=== PATIENT | female | born 1980 | race Caucasian/White ===

== ENCOUNTER 2017-12-26 06:00 | Inpatient (IN) | payer BC ==
[2017-12-26 06:23] LABS: Absolute Lymphocytes (CBC) 3.8 K/uL (0.7-4.9); Absolute Monocytes 0.4 K/uL (0.1-1.3); Absolute Neutrophil 5.2 K/uL (1.8-8.0); Basophils % 0.5 % (0-1.3); Eosinophils % 0.4 % (0-4.4); Hematocrit 43.5 % (36.0-45.0); Lymphocytes % 40.3 % (15.3-44.8); MCH 31.1 pg (27.0-35.0); MCV 91.8 fL (80-100); MPV 8.9 fL (7.6-11.3); Monocytes % 4.5 % (3.3-12.3); Protime INR 1.14; RBC Red Blood Cell Count 4.74 M/uL (3.86-4.86)
[2017-12-26 06:46] LABS: ALT/SGPT 23 U/L (12-78); AST/SGOT 14 U/L (15-37); Albumin 3.9 g/dL (3.4-5.0); Alkaline Phosphatase 58 U/L (45-117); BUN Blood Urea Nitrogen 7 mg/dL (7-18); Bicarbonate 25 mmol/L (21-32); Bilirubin Direct < 0.1 mg/dL (0-0.2); Bilirubin Total 0.2 mg/dL (0.2-1.0); Glucose Level 145 mg/dL (74-106); Magnesium 1.7 mg/dL (1.8-2.4); NT PRO-BNP 312 pg/mL (<125); Protein, Total 7.2 g/dL (6.4-8.2); Sodium Level 139 mmol/L (136-145)
[2017-12-26] MEDS ORDERED: Magnesium Sulfate 1gm IVPB 1 GM/50 ML BAG IV ONE (07:01)
[2017-12-26] MEDS ORDERED: POTASSIUM CL SA 10 MEQ TAB PO ONE (07:01)
--- NOTE | 2017-12-26 07:27 | RAD REPORT ---
EXAM DESCRIPTION: RAD - Chest Single View - 12/26/2017 6:27 am CLINICAL HISTORY: Sharp chest pain radiating to the back COMPARISON: None. TECHNIQUE: AP portable chest image was obtained 0613 hours . FINDINGS: Lungs are clear. Heart and vasculature are normal. No measurable pleural effusion and no p neumothorax. No gross bony abnormality seen. No acute aortic findings suspected. IMPRESSION: No acute cardiopulmonary process.
--- NOTE | 2017-12-26 09:24 | ER ---
Nurse's Notes [facility] Name: Cira Nixon Age: 37 yrs Sex: Female : 1980 Arrival Date: 12/26/2017 Time: 06:01 Bed 2 Private MD: Diagnosis: Non-ST elevation (NSTEMI) myocardial infarction;Abnormal electrocardiogram [ECG] [EKG] Presentation: 12/26 06:02 Presenting complaint: EMS states: they were toned out for report of pt having severe bb sharp chest pain radiating to her back and jaw pt was on her way to work, pt states she has had these same symptoms in the past and has had a cardiac work-up including an echo and a stress test but no clear diagnosis. Transition of care: patient was not received from another setting of care. Onset of symptoms was December 26, 2017. Risk Assessment: Do you want to hurt yourself or someone else? Patient reports no desire to harm self or others. Initial Sepsis Screen: Does the patient meet any 2 criteria? No. Patient's initial sepsis screen is negative. Does the patient have a suspected source of infection? No. Patient's initial sepsis screen is negative. Care prior to arrival: Medication(s) given: ASA, 81 mg, x 4, Glucose check: 135. 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 - Social history:: Smoking status: Patient uses tobacco products, smokes one-half pack cigarettes per day, Patient/guardian denies using alcohol, street drugs. - Ebola Screening: : No symptoms or risks identified at this time. Screenin:47 Abuse screen: Denies threats or abuse. Denies injuries from another. Nutritional ao screening: No deficits noted. Tuberculosis screening: No symptoms or risk factors identified. Fall Risk None identified. Assessment: 06:05 General: Appears in no apparent distress. comfortable, Behavior is calm, cooperative, ao appropriate for age. Pain: Complains of pain in chest Pain does not radiate. Pain currently is 4 out of 10 on a pain scale. Pain began 1 day ago. Patient driving to work when sudden got chest pain. Neuro: Level of Consciousness is awake, alert, obeys commands, Oriented to person, place, time, situation, Appropriate for age Moves all extremities. Full function Speech is normal, Facial symmetry appears normal, Pupils are. Cardiovascular: Capillary refill < 3 seconds Patient's skin is warm and dry. Respiratory: Airway is patent Respiratory effort is even, unlabored, Respiratory pattern is regular, symmetrical. GI: Abdomen is non-distended. : No signs and/or symptoms were reported regarding the genitourinary system. EENT: No signs and/or symptoms were reported regarding the EENT system. Derm: Skin is intact, Skin is pink, warm \\T\\ dry. normal, Skin temperature is warm. Musculoskeletal: Circulation, motion, and sensation intact. Range of motion: intact in all extremities. 07:10 Reassessment: Reynaldo GUZMÁN at bedside updated on results and POC, pt stated understanding, sg awaiting new orders, awaiting dispo orders at this time. 08:20 Reassessment: Patient appears in no apparent distress at this time. Patient and/or sg family updated on plan of care and expected duration. Pain level reassessed. Patient is alert, oriented x 3, equal unlabored respirations, skin warm/dry/pink. pt states " do you know how much longer until I am discharged." pt re educated on wait time for blood diagnostic procedures at this time, pt stated understanding. 09:30 Reassessment: Patient appears in no apparent distress at this time. Patient and/or sg family updated on plan of care and expected duration. Pain level reassessed. Patient is alert, oriented x 3, equal unlabored respirations, skin warm/dry/pink. at bedside evaluating pt at this time Patient states feeling better. Vital Signs: 06:06 BP 146 / 100; Pulse 83; Resp 16 S; Temp 97.6(TE); Pulse Ox 96% on R/A; Weight 58.51 kg bb (R); Height 5 ft. 8 in. (172.72 cm) (R); Pain 2/10; 06:48 BP 110 / 80; Pulse 78; Resp 21; Pulse Ox 100% ; Pain 0/10; ao 07:15 BP 125 / 84; Pulse 80; Resp 20 S; Pulse Ox 100% on R/A; Pain 0/10; sg 09:08 BP 112 / 77; Pulse 79 MON; Resp 14 S; Pulse Ox 98% on R/A; Pain 0/10; sg 09:30 BP 128 / 92; Pulse 83; Resp 16 S; Pulse Ox 100% on R/A; Pain 0/10; sg 11:00 BP 133 / 91; Pulse 75; Resp 17 S; Pulse Ox 99% on R/A; Pain 0/10; sg 06:06 Body Mass Index 19.61 (58.51 kg, 172.72 cm) bb Taylor Coma Score: 11:00 Eye Response: spontaneous(4). Verbal Response: oriented(5). Motor Response: obeys sg commands(6). Total: 15. ED Course: 06:01 Patient arrived in ED. ds1 06:04 Triage completed. bb 06:06 Reynaldo Newell PA is PHCP. jr8 06:06 Alexis Hoang MD is Attending Physician. jr8 06:06 Arm band placed on Patient placed in an exam room, on a stretcher, on youth nutritional monitor, bb on pulse oximetry. EKG completed in triage. Results shown to MD. 06:10 Inserted saline lock: 20 gauge in right antecubital area, using aseptic technique. lp1 Blood collected. 06:23 X-ray completed. Portable x-ray completed in exam room. Patient tolerated procedure kp1 well. 06:25 XRAY Chest (1 view) In Process Unspecified. EDMS 06:47 Patient has correct armband on for positive identification. secured entrance monitor on. Pulse ao ox on. NIBP on. 06:48 Patient maintains SpO2 saturation greater than 95% on room air. ao 07:12 Barry Beltran, RN is Primary Nurse. sg 09:23 Lex Hilton DO is Hospitalizing Provider. jr8 10:40 Urine collected: clean catch specimen. sg 11:33 No provider procedures requiring assistance completed. Patient admitted, IV remains in sg place. intact, No redness/swelling at site. Administered Medications: 07:05 Drug: Potassium Chloride 40 mEq Route: PO; ao 11:37 Follow up: Response: No adverse reaction sg 07:05 Drug: Magnesium Sulfate 1 grams Route: IVPB; Infused Over: 1 hrs; Site: right ao antecubital; 08:03 Follow up: Response: No adverse reaction; IV Status: Completed infusion sg 09:35 Drug: Lovenox 1 mg/kg Route: Sub-Q; Site: left lower abdomen; sg 11:37 Follow up: Response: No adverse reaction sg 09:35 Drug: Metoprolol 25 mg Route: PO; sg 11:36 Follow up: Response: No adverse reaction; No change in condition sg 10:14 Drug: Effient 60 mg Route: PO; sg 11:37 Follow up: Response: No adverse reaction sg Outcome: 09:24 Decision to Hospitalize by Provider. beni 11:34 Admitted to ICU accompanied by nurse, family with patient, via stretcher, room 6, with sg chart, Report called to bedside report to be given to Keisha HERNANDEZ 11:34 Condition: stable 11:34 Instructed on the need for admit, safety practices, Demonstrated understanding of instructions. 12:28 Patient left the ED. ae1 Signatures: Dispatcher [employer] EDMS Barry Beltran RN RN Navya Cortés ds1 Tamara Garcia RN RN bb Joan Squires, RN RN lp1 Reynaldo Newell PA PA jr8 Rigoberto Seo RN Umair Espinosa RN RN ae1 Chani Brooke kp1 Corrections: (The following items were deleted from the chart) 09:09 09:08 BP 122 / 77; Pulse 79bpm; MonitorResp 14bpm; Spontaneous; Pulse Ox 98% RA; Pain sg 0/10; sg
--- NOTE | 2017-12-26 09:25 | EDPHYS ---
Physician Documentation [facility] Name: Cira Nixon Age: 37 yrs Sex: Female : 1980 Arrival Date: 12/26/2017 Time: 06:01 Bed 2 Private MD: ED Physician Alexis Hoang HPI: 12/26 06:24 This 37 yrs old Female presents to ER via EMS with complaints of Chest Pain. jr8 06:24 The patient or guardian reports chest pain that is located primarily in the anterior jr8 chest wall, bilaterally. The pain radiates to both arms, both shoulders, neck, back. Associated signs and symptoms: Pertinent positives: diaphoresis, numbness and tingling. The chest pain is described as sharp. Duration: The patient or guardian reports a single episode. Modifying factors: The symptoms are alleviated by nothing. the symptoms are aggravated by nothing. Severity of pain: At its worst the pain was moderate in the emergency department the pain has resolved. The patient has experienced similar episodes in the past, a few times. The patient has not recently seen a physician. Patient stated that every once in a while will have pain that starts in the jaw and then goes down into chest, arms, and back. Stated that it is aching and very sharp. Today hand numbness in feet as well. Had full cardiac work up by construction project mgr about 2 years ago and found no acute findings. Stated that today was the worst episode that she has had . 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 - Social history:: Smoking status: Patient uses tobacco products, smokes one-half pack cigarettes per day, Patient/guardian denies using alcohol, street drugs. - Ebola Screening: : No symptoms or risks identified at this time. ROS: 06:24 Eyes: Negative for injury, pain, redness, and discharge, ENT: Negative for injury, jr8 pain, and discharge, Neck: Negative for injury, pain, and swelling, Respiratory: Negative for shortness of breath, cough, wheezing, and pleuritic chest pain, Abdomen/GI: Negative for abdominal pain, nausea, vomiting, diarrhea, and constipation, Back: Negative for injury and pain, MS/Extremity: Negative for injury and deformity, Skin: Negative for injury, rash, and discoloration. 06:24 Cardiovascular: Positive for chest pain, Negative for edema, orthopnea, palpitations, paroxysmal nocturnal dyspnea. 06:24 Neuro: Positive for numbness, tingling, Negative for altered mental status, dizziness, gait disturbance, headache, hearing loss, loss of consciousness, seizure activity, speech changes, syncope, near syncope, tinnitus, tremor, visual changes, weakness. Exam: 06:24 Eyes: Pupils equal round and reactive to light, extra-ocular motions intact. Lids and jr8 lashes normal. Conjunctiva and sclera are non-icteric and not injected. Cornea within normal limits. Periorbital areas with no swelling, redness, or edema. ENT: Nares patent. No nasal discharge, no septal abnormalities noted. Tympanic membranes are normal and external auditory canals are clear. Oropharynx with no redness, swelling, or masses, exudates, or evidence of obstruction, uvula midline. Mucous membranes moist. Neck: Trachea midline, no thyromegaly or masses palpated, and no cervical lymphadenopathy. Supple, full range of motion without nuchal rigidity, or vertebral point tenderness. No Meningismus. Respiratory: Lungs have equal breath sounds bilaterally, clear to auscultation and percussion. No rales, rhonchi or wheezes noted. No increased work of breathing, no retractions or nasal flaring. Abdomen/GI: Soft, non-tender, with normal bowel sounds. No distension or tympany. No guarding or rebound. No evidence of tenderness throughout. Back: No spinal tenderness. No costovertebral tenderness. Full range of motion. Skin: Warm, dry with normal turgor. Normal color with no rashes, no lesions, and no evidence of cellulitis. MS/ Extremity: Pulses equal, no cyanosis. Neurovascular intact. Full, normal range of motion. Neuro: Awake and alert, GCS 15, oriented to person, place, time, and situation. Cranial nerves II-XII grossly intact. Motor strength 5/5 in all extremities. Sensory grossly intact. Cerebellar exam normal. Normal gait. 06:24 Cardiovascular: Rate: normal, Rhythm: regular, Pulses: Pulses are 2+ in right radial artery and left radial artery. Heart sounds: S3, increased, Edema: is not appreciated, JVD: is not appreciated. 06:24 ECG was reviewed by the Attending Physician. Vital Signs: 06:06 BP 146 / 100; Pulse 83; Resp 16 S; Temp 97.6(TE); Pulse Ox 96% on R/A; Weight 58.51 kg bb (R); Height 5 ft. 8 in. (172.72 cm) (R); Pain 2/10; 06:48 BP 110 / 80; Pulse 78; Resp 21; Pulse Ox 100% ; Pain 0/10; ao 07:15 BP 125 / 84; Pulse 80; Resp 20 S; Pulse Ox 100% on R/A; Pain 0/10; sg 09:08 BP 112 / 77; Pulse 79 MON; Resp 14 S; Pulse Ox 98% on R/A; Pain 0/10; sg 09:30 BP 128 / 92; Pulse 83; Resp 16 S; Pulse Ox 100% on R/A; Pain 0/10; sg 11:00 BP 133 / 91; Pulse 75; Resp 17 S; Pulse Ox 99% on R/A; Pain 0/10; sg 06:06 Body Mass Index 19.61 (58.51 kg, 172.72 cm) bb Taylor Coma Score: 11:00 Eye Response: spontaneous(4). Verbal Response: oriented(5). Motor Response: obeys sg commands(6). Total: 15. MDM: 06:06 Patient medically screened. jr8 06:29 Differential diagnosis: abnormal EKG, acute myocardial infarction, anxiety, chest wall jr8 pain, congestive heart failure costochondritis, esophagitis, gastritis, gastroesophageal reflux disease (GERD), mitral valve prolapse, peptic ulcer disease, pericarditis, pleurisy, pneumonia, pneumothorax, pulmonary embolus, stable angina, thoracic aortic disection, unstable angina. ED course: Patient had aspirin prior to arrival. 07:34 Data reviewed: vital signs, nurses notes, lab test result(s), EKG, radiologic studies, jr8 plain films. Data interpreted: Pulse oximetry: on room air is 100 %. Interpretation: normal. Counseling: I had a detailed discussion with the patient and/or guardian regarding: the historical points, exam findings, and any diagnostic results supporting the discharge/admit diagnosis, lab results, radiology results, the need for outpatient follow up, a construction project mgr, to return to the emergency department if symptoms worsen or persist or if there are any questions or concerns that arise at home. ED course: Discussed with patient that she meets criteria for LVH on ECG, has BNP elevation, and noted on physical exam to have S3 heart sound in mitral region. Concern for possible ventricular hypertrophy/HF. Lung sounds clear and imaging normal. Recommend follow up with Dr. Kennedy again for further evaluation of this if second troponin comes back normal and she does not get admitted today. 09:14 Physician consultation: Antoni Kemp MD was called at 09:20, was contacted at 09:20, jr8 regarding consult, patient's condition, and will see patient in unit, scheduling heart cath for in the AM. ED course: Patient had conversion on second troponin with ECG changes on second ECG. Will admit to ICU for NSTEMI. 12/26 06:06 Order name: Basic Metabolic Panel; Complete Time: 06:49 [facility] 12/26 06:06 Order name: CBC with Diff; Complete Time: 06:49 [facility] 12/26 06:06 Order name: LFT's; Complete Time: 06:49 [facility] 12/26 06:06 Order name: Magnesium; Complete Time: 06:49 [facility] 12/26 06:06 Order name: NT PRO-BNP; Complete Time: 06:49 [facility] 12/26 06:06 Order name: PT-INR; Complete Time: 06:49 [facility] 12/26 06:06 Order name: Troponin (emerg Dept Use Only); Complete Time: 06:49 [facility] 12/26 08:22 Order name: Troponin (emerg Dept Use Only) 12/26 08:22 Order name: Troponin (Emerg Dept Use Only); Complete Time: 09:09 [facility] 12/26 11:38 Order name: Phenobarbital Level; Complete Time: 11:58 [facility] 12/26 11:53 Order name: Urine Dipstick--Ancillary (enter results) 12/26 11:53 Order name: Urine --Ancillary (enter results) 12/26 12:14 Order name: Urine --Ancillary; Complete Time: 12:26 [facility] 12/26 12:14 Order name: Urine Dipstick-Ancillary; Complete Time: 12:26 [facility] 12/26 06:06 Order name: XRAY Chest (1 view); Complete Time: 07:28 [facility] 12/26 06:06 Order name: EKG; Complete Time: 06:07 12/26 06:06 Order name: Cardiac monitoring; Complete Time: 06:10 12/26 06:06 Order name: EKG - Nurse/Tech; Complete Time: 06:09 [facility] 12/26 06:06 Order name: IV Saline Lock; Complete Time: 06:15 12/26 06:06 Order name: Labs collected and sent; Complete Time: 06:15 12/26 06:06 Order name: O2 Per Protocol; Complete Time: 06:09 [facility] 12/26 06:06 Order name: O2 Sat Monitoring; Complete Time: 06:09 12/26 06:06 Order name: Urine Dipstick-Ancillary (obtain specimen); Complete Time: 11:37 [facility] 12/26 09:09 Order name: EKG; Complete Time: 09:10 12/26 09:53 Order name: CONS Physician Consult [facility] 12/26 06:06 Order name: Urine Test (obtain specimen); Complete Time: 11:37 jr8 EC:24 Rate is 66 beats/min. Rhythm is regular, Normal Sinus Rhythm. QRS [place] is Normal. AR jr8 interval is normal at 134 msec. QRS interval is normal at 100 msec. QT interval is normal at 431 msec. No Q waves. T waves are Normal. No ST changes noted. Clinical impression: LVH and No evidence of ischemia. Interpreted by me. Reviewed by me. 09:24 Rate is 82 beats/min. Rhythm is regular, Normal Sinus Rhythm. QRS [place] is Normal. AR jr8 interval is normal at 122 msec. QRS interval is normal at 96 msec. QT interval is prolonged at 486 msec. No Q waves. T waves are Inverted in leads I, aVL, V2, V3, V4, V5, V6. No ST changes noted. Clinical impression: Cardiac ischemia and LVH. Interpreted by me. Reviewed by me. Administered Medications: 07:05 Drug: Potassium Chloride 40 mEq Route: PO; ao 11:37 Follow up: Response: No adverse reaction 07:05 Drug: Magnesium Sulfate 1 grams Route: IVPB; Infused Over: 1 hrs; Site: right ao antecubital; 08:03 Follow up: Response: No adverse reaction; IV Status: Completed infusion sg 09:35 Drug: Lovenox 1 mg/kg Route: Sub-Q; Site: left lower abdomen; sg 11:37 Follow up: Response: No adverse reaction sg 09:35 Drug: Metoprolol 25 mg Route: PO; sg 11:36 Follow up: Response: No adverse reaction; No change in condition sg 10:14 Drug: Effient 60 mg Route: PO; sg 11:37 Follow up: Response: No adverse reaction sg Disposition: 13:02 Critical Care:. jr8 Disposition: 12/26/17 09:24 Hospitalization ordered by Lex Hilton for Inpatient Admission. Preliminary diagnosis are Non-ST elevation (NSTEMI) myocardial infarction, Abnormal electrocardiogram [ECG] [EKG]. - Bed requested for Intensive Care Unit. - Status is Inpatient Admission. ae1 - Condition is Stable. - Problem is new. - Symptoms have improved. UTI on Admission? No Critical care time excluding procedures: 13:02 Critical care time: Bedside Care: 20 minutes, Consultation: 10 minutes, Family jr8 Intervention: 10 minutes. Total time: 40 minutes Addendum: 12/28/2017 19:05 Co-signature as Attending Physician, Alexis zuniga Signatures: Dispatcher [employer] Madeline Huang RN RN dw Gay, Steven, RN RN sg Lam, Pin, MD MD pkl Ballard, Brenda, RN RN bb Roszak, Josh, PA PA jr8 Rigoberto Seo RN RN ao Elliott, Andrea, RN RN ae1 Corrections: (The following items were deleted from the chart) 12/26 09:23 07:34 ED course: Discussed with patient that she meets criteria for LVH on ECG, has BNP jr8 elevation, and noted on physical exam to have S3 heart sound in mitral region. Concern for possible ventricular hypertrophy/HF. Lung sounds clear and imaging normal. Recommend follow up with Dr. Kennedy again for further evaluation of this . jr8 11:28 09:24 Hospitalization Ordered by Lex Hilton DO for Inpatient Admission. Preliminary dw diagnosis is Non-ST elevation (NSTEMI) myocardial infarction; Abnormal electrocardiogram [ECG] [EKG]. Bed requested for Intensive Care Unit. Status is Inpatient Admission. Condition is Stable. Problem is new. Symptoms have improved. UTI on Admission? No. jr8 12:28 11:28 12/26/2017 09:24 Hospitalization Ordered by Lex Hilton DO for Inpatient ae1 Admission. Preliminary diagnosis is Non-ST elevation (NSTEMI) myocardial infarction; Abnormal electrocardiogram [ECG] [EKG]. Bed requested for Intensive Care Unit. Status is Inpatient Admission. Condition is Stable. Problem is new. Symptoms have improved. UTI on Admission? No. dw
[2017-12-26] MEDS ORDERED: METOPROLOL TAR 25 MG TAB ONE (09:33)
[2017-12-26] MEDS ORDERED: ENOXAPARIN 60 MG/0.6 ML SQ ONE (09:34)
[2017-12-26] MEDS ORDERED: PRASUGREL (EFFIENT) 10 MG TAB PO ONE (09:45)
[2017-12-26] MEDS ORDERED: ONDANSETRON 4 MG/2 ML VIAL IV PRN (09:56)
[2017-12-26] MEDS ORDERED: NITROGLYCERIN 0.4 MG/TAB SL PRN (09:56)
[2017-12-26] MEDS: NA CHLORIDE 0.9% 1,000 ML IV SCH ×3 (10:00→23:20)
--- NOTE | 2017-12-26 10:10 | P.HP ---
Certification for Inpatient Patient admitted to: Inpatient With expected LOS: >2 Midnights Patient will require the following post-hospital care: None Practitioner: I am a practitioner with admitting privileges, knowledge of patient current condition, hospital course, and medical plan of care. Services: Services provided to patient in accordance with Admission requirements found in Title 42 Section 412.3 of the Code of Federal Regulations Patient History Date of Service: 12/26/17 Primary Care Provider: Dr. Camara; Pain management-Dr. Olmstead Reason for admission: Chest pain History of Present Illness: 37-year-old female presented emergency room with chest pain. The patient reports that she has been having chest pain off and on for the last several years. Today it was worse. Pain started to the jaw area then would radiate to the chest bilaterally. It would then radiate to the back. She rated the pain about a 10/10. It was associated with some sweating. No significant shortness of breath or dizziness noted. She also reported some numbness to the feet and hands with this. She came to the ER for further evaluation. In the ER she was evaluated. Initial troponin was less than 0.02. 2nd troponin was 0.24. Sec and EKG showed some evidence of ischemia to the anterior lateral region. Reports a history of having a stress test and echocardiogram done about 3 years ago with cardiology. Strict for sepsis was normal. Magnesium was slightly low. Potassium also low. Patient will be admitted for further evaluation and treatment. ER has contacted cardiology. Cardiology plans for heart catheterization tomorrow. When I saw the patient she was without any chest pain. She reports a history of chronic back pain, seizure disorder, hyperlipidemia. She once took blood pressure medication but stopped it due to low blood pressure. She does smoke on a regular basis. She reports compliance with her medication. Current medications include phenobarbital, Crestor, and Suboxone. Allergies morphine Allergy (Unverified 01/01/15 16:15) Unknown Penicillins Allergy (Unverified 01/01/15 16:15) Unknown Home medications list reviewed: Yes - Past Medical/Surgical History Diabetic: No -: Hyperlipidemia -: Chronic back pain -: Tobacco abuse -: Seizure disorder -: Hysterectomy -: Right foot surgery Psychosocial/ Personal History: Patient is . She has 2 children. 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 - Family History Father -: Heart disease Mother -: Heart disease - Social History Smoking Status: Light Tobacco smoker (1-9 cigarettes/day) Counseled patient to stop smoking for: less than 10 minutes Smoking therapy provided: Yes Patient receptive to therapy: Yes Alcohol use: No CD- Drugs: No Caffeine use: Yes Place of Residence: Home Review of Systems General: As per HPI Eyes: Unremarkable ENT: Unremarkable Respiratory: Unremarkable Cardiovascular: Chest Pain, As per HPI Gastrointestinal: Unremarkable Genitourinary: Unremarkable Musculoskeletal: Back Pain, As per HPI Integumentary: Unremarkable Neurological: Unremarkable Lymphatics: Unremarkable Physical Examination - Physical Exam General: Alert, In no apparent distress, Oriented x3, Cooperative HEENT: Atraumatic, Normocephalic, PERRLA, Mucous membr. moist/pink Neck: Supple, No Thyromegaly Respiratory: Clear to auscultation bilaterally, Normal air movement Cardiovascular: Normal pulses, Regular rate/rhythm Gastrointestinal: Normal bowel sounds, Soft and benign, Non-distended, No tenderness, No masses, No rebound, No guarding Musculoskeletal: No contractures, No erythema, No tenderness, No warmth Integumentary: No tenderness/swelling, No erythema, No warmth, No cyanosis Neurological: Normal speech, Normal strength at 5/5 x4 extr, Normal tone, Normal affect Lymphatics: No axilla or inguinal lymphadenopathy - Studies Laboratory Data (last 24 hrs) 12/26/17 06:05: PT 13.5 H, INR 1.14 12/26/17 06:05: WBC 9.6, Hgb 14.7, Hct 43.5, Plt Count 259 12/26/17 06:05: Sodium 139, Potassium 3.0 L, BUN 7, Creatinine 0.70, Glucose 145 H, Magnesium 1.7 L, Total Bilirubin 0.2, AST 14 L, ALT 23, Alkaline Phosphatase 58 Assessment and Plan - Problems (Diagnosis) (1) Chest pain Current Visit: Yes Status: Acute Plan: Troponin elevated. suspect NSTEMI. Patient will be admitted for treatment. ER spoke to Cardiology. Will have heart cath tomorrow. Will start ASA, Lovenox. Effient appears to have been given in the ER. Will hold off on BP medication due to low BP. Will start Crestor. Patient stable. Qualifiers: Chest pain type: unspecified Qualified Code(s): R07.9 - Chest pain, unspecified (2) NSTEMI (non-ST elevated myocardial infarction) Current Visit: Yes Status: Acute Plan: Continue as above. Cardiology consulted. Anticipate Heart cath tomorrow. (3) Hyperlipidemia Current Visit: Yes Status: Chronic Plan: Will check Lipids. Will start Crestor. Qualifiers: Hyperlipidemia type: unspecified Qualified Code(s): E78.5 - Hyperlipidemia , unspecified (4) Seizure disorder Current Visit: Yes Status: Chronic Plan: Patient taking medication. Will continue with Phenobarbitol. (5) Hypomagnesemia Current Visit: Yes Status: Acute Plan: Will monitor and replace. Replacement protocol in place. (6) Hypokalemia Current Visit: Yes Status: Acute Plan: Will monitor and replace appropriately. Replacement protocol in place. (7) Chronic pain Current Visit: Yes Status: Chronic Plan: Patient takes Suboxone and sees pain management. Will continue with her medication. Qualifiers: Chronic pain type: chronic pain syndrome Qualified Code(s): G89.4 - Chronic pain syndrome Discharge Plan: Home Plan to discharge in: Greater than 2 days - Advance Directives Does patient have a Living Will: No Does patient have a Durable POA for Healthcare: No - Code Status/Comfort Care Code Status Assessed: Yes Time Spent Managing Pts Care (In Minutes): 55
--- NOTE | 2017-12-26 10:28 | EKG ---
Test Date: 2017-12-26 Test Time: 09:10:[address] Reporter: SNOW MEASUREMENT RESULTS: Intervals: Rate: 82 NC: 122 QRSD: 96 QT: 416 QTc: 486 [place]: P: 69 NC: 122 QRS: 52 T: 139 INTERPRETIVE STATEMENTS: Normal sinus rhythm Minimal voltage criteria for LVH, may be normal variant T wave abnormality, consider anterolateral ischemia Prolonged QT Abnormal ECG Compared to ECG 12/26/2017 06:01:22 Possible ischemia now present Prolonged QT interval now present T-wave abnormality still present Electronically Signed On 12-26-17 10:27:51 CDT by Antoni Kemp
--- NOTE | 2017-12-26 10:29 | EKG ---
Test Date: 2017-12-26 Test Time: 06:01:22 Housecleaner Floor: DEE MEASUREMENT RESULTS: Intervals: Rate: 66 OH: 134 QRSD: 100 QT: 412 QTc: 431 [place]: P: 69 [place]: 134 QRS: 58 T: 76 INTERPRETIVE STATEMENTS: Normal sinus rhythm Minimal voltage criteria for LVH, may be normal variant Nonspecific T wave abnormality Abnormal ECG No previous ECG available for comparison Electronically Signed On 12-26-17 10:28:02 CDT by Antoni Kemp
[2017-12-26 12:14] LABS: Urine Blood NEGATIVE (NEG); Urine Glucose NEGATIVE (NEG); Urine Protein NEGATIVE (NEG)
--- NOTE | 2017-12-26 16:18 | CON ---
History Of Present Illness: Ms. Nixon is 37. She has been having chest pain like these spells for se veral years, will happen intermittently. She had one 2 months ago and one today. The one today hurt the most and scared her the most. This is the first time she has come to the hospital with it. The spell started as tightness and pressure in the jaw, radiates to the chest. She is out of breath, ti ght, very uncomfortable. When she arrived in the emergency room, her EKG looked fine at first and fe w hours later, the EKG showed inverted T-waves. Her chest pain had gone away, and her troponins adriana me abnormal. The patient has never had a cardiac cath or any cardiac evaluation. She has a lifelong seizure disorder and takes phenobarbital. She takes Suboxone because of chronic pain, and she takes Crestor 10 mg for elevated lipids. Social History: She is a regular tobacco user and agrees that she needs to quit smoking. Allergies: SHE IS ALLERGIC TO MORPHINE AND PENICILLINS. NOT ALLERGIC TO X-RAY CONTRAST MATERIAL. Physical Examination: Vital Signs: 5 feet 8 inches, 128 pounds. General: Alert, oriented, pleasant, not in distress. Lungs: Clear. Cardiac: Normal. Abdomen: Soft. Extremities: Normal. No cyanosis, clubbing or edema. Distal pulses normal. Diagnostic Data: Most recent EKG shows anterolateral T-wave inversion, no Q-waves, there was no ST e levation. Her creatinine is 0.7. Her highest troponin is 0.24. Impression: The patient has had an acute coronary syndrome. The patient needs to stop using tobacco , get very aggressive with lipid-lowering and she needs to undergo a cardiac cath tomorrow, possibly a stent. The patient seems to understand the cardiac cath procedure and stent procedure. She agrees to do it. She understands the risks, potential benefits, indications, and agrees to proceed. GERARD/YO Voice ID: [id number] Report ID: [id number]
[2017-12-26 17:18] LABS: CKMB Creatine Kinase MB 2.5 ng/mL (0.3-3.6)
[2017-12-26] MEDS: ACETAMINOPHEN 500 MG TAB PO PRN (19:04)
[2017-12-26] MEDS: ENOXAPARIN 60 MG/0.6 ML SQ SCH (20:29)
[2017-12-26] MEDS: FAMOTIDINE 20 MG TAB PO SCH (20:29)
[2017-12-26] MEDS: NICOTINE 21 MG/PAT TD SCH (20:29)
[2017-12-26] MEDS ORDERED: PHENOBARBITAL 32.4 MG TABLET PO SCH ×2 (21:00)
[2017-12-26] MEDS ORDERED: ROSUVASTATIN 10 MG TAB PO SCH (21:00)
[2017-12-27] MEDS: NA CHLORIDE 0.9% 1,000 ML IV SCH ×2 (03:36→12:40)
[2017-12-27] MEDS: ACETAMINOPHEN 500 MG TAB PO PRN ×3 (03:36→11:58)
[2017-12-27 05:44] LABS: Absolute Lymphocytes (CBC) 2.7 K/uL (0.7-4.9); Absolute Monocytes 0.4 K/uL (0.1-1.3); Absolute Neutrophil 2.7 K/uL (1.8-8.0); Basophils % 0.6 % (0-1.3); Eosinophils % 0.8 % (0-4.4); Hematocrit 38.7 % (36.0-45.0); Lymphocytes % 46.3 % (15.3-44.8); MCH 31.7 pg (27.0-35.0); MCV 92.8 fL (80-100); MPV 8.9 fL (7.6-11.3); RBC Red Blood Cell Count 4.17 M/uL (3.86-4.86)
[2017-12-27 06:03] LABS: BUN Blood Urea Nitrogen 7 mg/dL (7-18); Bicarbonate 28 mmol/L (21-32); Glucose Level 87 mg/dL (74-106); HDL Cholesterol 48 mg/dL (40-60); LDL Cholesterol, Calculated 79 (<130); Potassium 4.1 mmol/L (3.5-5.1); Sodium Level 143 mmol/L (136-145)
[2017-12-27] MEDS: ENOXAPARIN 60 MG/0.6 ML SQ SCH (07:31)
[2017-12-27] MEDS: NICOTINE 21 MG/PAT TD SCH (07:51)
[2017-12-27] MEDS: FAMOTIDINE 20 MG TAB PO SCH (07:52)
[2017-12-27] MEDS ORDERED: ASPIRIN EC 81 MG TAB PO SCH (09:00)
[2017-12-27] MEDS ORDERED: PRASUGREL (EFFIENT) 10 MG TAB PO SCH (09:00)
--- NOTE | 2017-12-27 12:48 | P.PN ---
Subjective Date of Service: 12/27/17 Primary Care Provider: Dr. Camara; Pain management-Dr. Olmstead Chief Complaint: Chest pain Subjective: Doing well Physical Examination - Vital Signs Temperature: 97.5 F Blood Pressure: 137/84 Pulse: 83 Respirations: 18 Pulse Ox (%): 100 - Physical Exam General: Alert, In no apparent distress, Oriented x3, Cooperative HEENT: Atraumatic Neck: Supple Respiratory: Clear to auscultation bilaterally, Normal air movement Cardiovascular: Normal pulses, Regular rate/rhythm Gastrointestinal: Normal bowel sounds, Soft and benign, Non-distended, No tenderness, No masses, No rebound, No guarding Musculoskeletal: No erythema, No tenderness, No warmth Integumentary: No tenderness/swelling, No erythema, No warmth, No cyanosis Neurological: Normal speech, Normal strength at 5/5 x4 extr, Normal tone, Normal affect - Studies Medications List Reviewed: Yes Assessment & Plan - Problems (Diagnosis) (1) Chest pain Onset Date: 12/27/17 Current Visit: Yes Status: Acute Plan: Troponin elevated. Suspect NSTEMI. Continue current medications. Cardiology plans for heart catheterization today. Await findings. Qualifiers: Chest pain type: unspecified Qualified Code(s): R07.9 - Chest pain, unspecified (2) NSTEMI (non-ST elevated myocardial infarction) Onset Date: 12/27/17 Current Visit: Yes Status: Acute Plan: Continue as above. Cardiology consulted. Heart catheterization scheduled for today. (3) Hyperlipidemia Onset Date: 12/27/17 Current Visit: Yes Status: Chronic Plan: Continue with medication Qualifiers: Hyperlipidemia type: unspecified Qualified Code(s): E78.5 - Hyperlipidemia , unspecified (4) Seizure disorder Onset Date: 12/27/17 Current Visit: Yes Status: Chronic Plan: Patient taking medication. Will continue with Phenobarbitol. (5) Hypomagnesemia Onset Date: 12/27/17 Current Visit: Yes Status: Acute Plan: Will monitor and replace. Replacement protocol in place. (6) Hypokalemia Onset Date: 12/27/17 Current Visit: Yes Status: Acute Plan: Will monitor and replace appropriately. Replacement protocol in place. (7) Chronic pain Onset Date: 12/27/17 Current Visit: Yes Status: Chronic Plan: Patient takes Suboxone and sees pain management. Will continue with her medication. Qualifiers: Chronic pain type: chronic pain syndrome Qualified Code(s): G89.4 - Chronic pain syndrome (8) Hypertension Current Visit: Yes Status: Chronic Plan: Blood pressure stable without medication. Will continue to monitor closely. May need to start low-dose beta-dulce. Qualifiers: Hypertension type: essential hypertension Qualified Code(s): I10 - Essential (primary) hypertension Discharge Plan: Home Plan to discharge in: 24 Hours Time Spent Managing Pts Care (In Minutes): 55
[2017-12-27] MEDS ORDERED: HEPA 1000U/500MLS 1,000 UNIT/500 ML BAG IV ONE (13:53)
[2017-12-27] MEDS ORDERED: NA CHLORIDE 0.9% 0 ML ONE (13:54)
[2017-12-27] MEDS ORDERED: ATROPINE SULF 1 MG/10 ML SYR IV ONE (13:54)
[2017-12-27] MEDS ORDERED: MIDAZOLAM HCL 2 MG/2 ML INJ ONE ×2 (13:59→14:18)
[2017-12-27] MEDS ORDERED: FENTANYL CITR 100 MCG/2 ML ONE (13:59)
[2017-12-27] MEDS ORDERED: LIDOCAINE 2% MPF 5 ML VIAL ONE ×2 (14:22)
[2017-12-27] MEDS ORDERED: LIDOCAINE 1% MPF 5 ML VIAL ONE (15:41)
--- NOTE | 2017-12-27 15:42 | P.DS ---
Admission Date: 12/26/17 Discharge Date: 12/27/17 Primary Care Provider: Dr. Camara; Pain management-Dr. Olmstead Disposition: ROUTINE DISCHARGE Discharge Condition: GOOD Reason for Admission: Chest pain Consultations: Cardiology-Dr. Castillo Procedures: Heart catheterization shows small-vessel disease. Stenosis noted to the distal LAD. No need for stenting at this time. - Problems (1) Chest pain Onset Date: 12/27/17 Current Visit: Yes Status: Acute Qualifiers: Chest pain type: unspecified Qualified Code(s): R07.9 - Chest pain, unspecified (2) NSTEMI (non-ST elevated myocardial infarction) Onset Date: 12/27/17 Current Visit: Yes Status: Acute (3) Hyperlipidemia Onset Date: 12/27/17 Current Visit: Yes Status: Chronic Qualifiers: Hyperlipidemia type: unspecified Qualified Code(s): E78.5 - Hyperlipidemia , unspecified (4) Seizure disorder Onset Date: 12/27/17 Current Visit: Yes Status: Chronic (5) Hypomagnesemia Onset Date: 12/27/17 Current Visit: Yes Status: Acute (6) Hypokalemia Onset Date: 12/27/17 Current Visit: Yes Status: Acute (7) Chronic pain Onset Date: 12/27/17 Current Visit: Yes Status: Chronic Qualifiers: Chronic pain type: chronic pain syndrome Qualified Code(s): G89.4 - Chronic pain syndrome (8) Hypertension Current Visit: Yes Status: Chronic Qualifiers: Hypertension type: essential hypertension Qualified Code(s): I10 - Essential (primary) hypertension (9) Small vessel disease Current Visit: Yes Status: Chronic (10) CAD (coronary artery disease) Current Visit: Yes Status: Chronic (11) Tobacco abuse Current Visit: Yes Status: Chronic (12) COPD (chronic obstructive pulmonary disease) Current Visit: Yes Status: Chronic Qualifiers: COPD type: chronic bronchitis Chronic bronchitis type: unspecified Qualified Code(s): J42 - Unspecified chronic bronchitis Brief History of Present Illness: 37-year-old female presented emergency room with chest pain. The patient reports that she has been having chest pain off and on for the last several years. Today it was worse. Pain started to the jaw area then would radiate to the chest bilaterally. It would then radiate to the back. She rated the pain about a 10/10. It was associated with some sweating. No significant shortness of breath or dizziness noted. She also reported some numbness to the feet and hands with this. She came to the ER for further evaluation. In the ER she was evaluated. Initial troponin was less than 0.02. 2nd troponin was 0.24. Sec and EKG showed some evidence of ischemia to the anterior lateral region. Reports a history of having a stress test and echocardiogram done about 3 years ago with cardiology. Strict for sepsis was normal. Magnesium was slightly low. Potassium also low. Patient will be admitted for further evaluation and treatment. ER has contacted cardiology. Cardiology plans for heart catheterization tomorrow. When I saw the patient she was without any chest pain. She reports a history of chronic back pain, seizure disorder, hyperlipidemia. She once took blood pressure medication but stopped it due to low blood pressure. She does smoke on a regular basis. She reports compliance with her medication. Current medications include phenobarbital, Crestor, and Suboxone. Hospital Course: During the course of her stay patient presented with chest pain. Non ST wave RI was identified. Patient evaluated by Cardiology. Cardiology recommended heart catheterization. Heart catheterization shows small vessel disease with distal LAD stenosis. No stents placed at this time. Patient will continue with medical therapy. At discharge she will continue with aspirin 81 mg daily, Norvasc 10 mg 1 pill once daily, metoprolol XL 25 mg 1 pill daily, Crestor 40 mg 1 pill once daily, and nitroglycerin to be use as needed for chest pain. Recommendation is for the patient follow up with cardiology in 1 week. Patient has hypertension. At discharge new medications include Norvasc 10 mg 1 pill once daily and metoprolol XL 25 mg daily. Recommendation is to maintain blood pressures less 150/80. Further adjustment can be done by her PCP or cardiology. Patient has hyperlipidemia. At discharge new medication include Crestor 40 mg 1 pill once daily. Patient has history of seizure disorder. She will continue with her medication including phenobarbital 64.8 mg 2 pills at bedtime. Patient has chronic pain. She will continue with Suboxone 3 times a day. Recommendation is for the patient follow up with pain management to continue her medication. Patient has tobacco abuse. Tobacco cessation addressed in detail. The patient will be provided a nicotine patch to continue at home. Further adjustment can be done by her PCP. Patient likely has underlying COPD. New medications include Symbicort 160 mcg 2 puffs twice daily and Pro air 2 puffs 3 times a day as needed for shortness of breath. Combivent has been discontinued. Recommendation is for the patient follow up with pulmonology as an outpatient to further monitor and address. Vital Signs/Physical Exam: Temp Pulse Resp BP Pulse Ox 97.5 F 77 15 137/85 100 12/27/17 12:48 12/27/17 15:15 12/27/17 15:15 12/27/17 15:15 12/27/17 12:48 General: Alert, In no apparent distress, Oriented x3 HEENT: Atraumatic Neck: Supple Respiratory: Clear to auscultation bilaterally, Normal air movement Cardiovascular: Normal pulses, Regular rate/rhythm Gastrointestinal: Normal bowel sounds, Soft and benign, Non-distended, No tenderness, No masses, No rebound, No guarding Musculoskeletal: No erythema, No tenderness, No warmth Integumentary: No tenderness/swelling, No erythema, No warmth, No cyanosis Neurological: Normal speech, Normal strength at 5/5 x4 extr, Normal tone, Normal affect Laboratory Data at Discharge: WBC 5.9 K/uL (4.3-10.9) D 12/27/17 05:06 Hgb 13.2 g/dL (12.0-15.0) 12/27/17 05:06 Hct 38.7 % (36.0-45.0) 12/27/17 05:06 Plt Count 203 K/uL (152-406) D 12/27/17 05:06 PT 13.5 SECONDS (9.5-12.5) H 12/26/17 06:05 INR 1.14 12/26/17 06:05 Sodium 143 mmol/L (136-145) 12/27/17 05:06 Potassium 4.1 mmol/L (3.5-5.1) 12/27/17 05:06 BUN 7 mg/dL (7-18) 12/27/17 05:06 Creatinine 0.50 mg/dL (0.55-1.3) L 12/27/17 05:06 Glucose 87 mg/dL (74-106) 12/27/17 05:06 Magnesium 2.0 mg/dL (1.8-2.4) 12/27/17 05:06 Total Bilirubin 0.2 mg/dL (0.2-1.0) 12/26/17 06:05 AST 14 U/L (15-37) L 12/26/17 06:05 ALT 23 U/L (12-78) 12/26/17 06:05 Alkaline Phosphatase 58 U/L (45-117) 12/26/17 06:05 Troponin I 0.42 ng/mL (0.0-0.045) H 12/26/17 16:50 Triglycerides 134 mg/dL (<150) 12/27/17 05:06 Cholesterol 154 mg/dL (<200) 12/27/17 05:06 HDL Cholesterol 48 mg/dL (40-60) 12/27/17 05:06 Cholesterol/HDL Ratio 3.21 12/27/17 05:06 Home Medications: Buprenorphine HCl/Naloxone HCl [Suboxone 8 mg-2 mg Sl Film] 8 mg SL TID PRN Fluticasone [Flonase 50MCG Nasal [place]*] 1 sprays NS DAILYPRN PRN 12/26/17 Methocarbamol [Robaxin*] 500 mg PO TID PRN 12/26/17 PHENobarbital [Phenobarbital*] 2 tab PO BEDTIME 12/26/17 Albuterol Sulfate [Proair Hfa] 8.5 gm IH TID PRN #1 hfa.aer.ad 12/27/17 Amlodipine Besylate [Norvasc] 10 mg PO DAILY #30 tablet 12/27/17 Aspirin [Aspirin EC 81 MG] 81 mg PO DAILY #90 tablet.dr 12/27/17 Budesonide/Formoterol Fumarate [Symbicort 160-4.5 Mcg Inhaler] 2 puff IH BID #1 hfa.aer.ad 12/27/17 Metoprolol Succinate [Toprol Xl] 25 mg PO DAILY #30 tab 12/27/17 Nicotine [Nicoderm] 1 patch TD DAILY #30 patch.td24 12/27/17 Nitroglycerin 0.4 mg SL SEECOM PRN #30 tab.subl 12/27/17 Rosuvastatin Calcium [Crestor] 40 mg PO BEDTIME #30 tablet 12/27/17 New Medications: Albuterol Sulfate [Proair Hfa] 8.5 gm IH TID PRN #1 hfa.aer.ad PRN Reason: Shortness Of Breath Amlodipine Besylate [Norvasc] 10 mg PO DAILY #30 tablet Aspirin [Aspirin EC 81 MG] 81 mg PO DAILY #90 tablet. Budesonide/Formoterol Fumarate [Symbicort 160-4.5 Mcg Inhaler] 2 puff IH BID #1 hfa.aer.ad Metoprolol Succinate [Toprol Xl] 25 mg PO DAILY #30 tab Nicotine [Nicoderm] 1 patch TD DAILY #30 patch.td24 Nitroglycerin 0.4 mg SL SEECOM PRN #30 tab.subl PRN Reason: Chest Pain Rosuvastatin Calcium [Crestor] 40 mg PO BEDTIME #30 tablet Patient Discharge Instructions: 1. Patient will need to follow with her PCP in 1 week to follow up this hospitalization. 2. Patient presented with chest pain. Patient found to have non ST wave myocardial infarction. Patient evaluated by Cardiology. Heart catheterization done. Heart catheterization shows small vessel disease with distal LAD stenosis. No stents placed at this time. Patient continue with medical therapy. At discharge she will continue with aspirin 81 mg daily, Norvasc 10 mg 1 pill once daily, metoprolol XL 25 mg 1 pill daily, Crestor 40 mg 1 pill once daily, and nitroglycerin to be use as needed for chest pain. Recommendation is for the patient follow up with cardiology in 1 week. 3. Patient has hypertension. At discharge new medications include Norvasc 10 mg 1 pill once daily and metoprolol XL 25 mg daily. Recommendation is to maintain blood pressures less 150/80. Further adjustment can be done by her PCP or cardiology. 4. Patient has hyperlipidemia. At discharge new medication include Crestor 40 mg 1 pill once daily. 5. Patient has history of seizure disorder. She will continue with her medication including phenobarbital 64.8 mg 2 pills at bedtime. 6. Patient has chronic pain. She will continue with Suboxone 3 times a day. Recommendation is for the patient follow up with pain management to continue her medication. 7. Patient has tobacco abuse. Tobacco cessation addressed in detail. Patient will be provided nicotine patch. This can be further adjusted by her PCP. 8. Patient likely has underlying COPD. New medications include Symbicort 160 mcg 2 puffs twice daily and Pro air 2 puffs 3 times a day as needed for shortness of breath. Combivent has been discontinued. Recommendation is for the patient follow up with pulmonology as an outpatient to further monitor and address. Diet: AHA Activity: Ad bessy Time spent managing pt's care (in minutes): 55
--- NOTE | 2017-12-27 16:21 | ECHO ---
HEIGHT: 5 ft 8 in WEIGHT: 133 lb 0 oz DATE OF STUDY: 12/27/[address]: Kemal Catsillo MD 2-DIMENSIONAL: YES M.MODE: YES DOPPLER: YES COLOR FLOW: YES TDS: PORTABLE: DEFINITY: BUBBLE STUDY: DIAGNOSIS: STATUS POST CATHETER CARDIAC HISTORY: CATHERIZATION: YES SURGERY: PROSTHETIC VALVE: PACEMAKER: MEASUREMENTS (cm) DIASTOLIC (NORMALS) SYSTOLIC (NORMALS) IVSd 1.0 (0.6-1.2) LA Diam 3.0 (1.9-4.0) LVEF 59% LVIDd 5.2 (3.5-5.7) LVIDs 3.5 (2.0-3.5) %FS 32% LVPWd 1.0 (0.6-1.2) Ao Diam 2.8 (2.0-3.7) 2 DIMENSIONAL ASSESSMENT: RIGHT ATRIUM: NORMAL LEFT ATRIUM: NORMAL RIGHT VENTRICLE: NORMAL LEFT VENTRICLE: NORMAL TRICUSPID VALVE: NORMAL MITRAL VALVE: NORMAL PULMONIC VALVE: NORMAL AORTIC VALVE: NORMAL PERICARDIAL EFFUSION: NONE AORTIC ROOT: NORMAL LEFT VENTRICULAR WALL MOTION: NORMAL DOPPLER/COLOR FLOW: TRACE MITRAL REGURGITATION COMMENTS: NORMAL TWO DIMENSIONAL ECHOCARDIOGRAM. TRACE MITRAL REGURGITATION. TECHNOLOGIST: BYRON FARAH
--- NOTE | 2017-12-27 23:16 | OP ---
Surgeon: Kemal Castillo MD Shingle Packer: Chrissy Hernandez. Procedure: Left heart catheterization with selective coronary arteriogram. Indication: [id number] myocardial infarction. Ms. Nixon is 37, has had chest pain intermittent ly for a few years, has history of tobacco use and hypertension as risk factors, came in, and got adm itted to Dr. Hilton' service with non-ST elevation AR. Description Of Procedure: She came into the [facility] today, got 4 mg of Versed for IV sedation and s ome fentanyl. A 6-Micronesian sheath was introduced in the right common femoral artery successfully. Ang io-Seal was used to close the case. Six-Micronesian catheters were used to do the diagnostic catheterizat ion. She had noticeably very small blood vessel throughout her coronaries. Her circumflex was fairl y normal and her RCA was normal with about 30% proximal stenosis. Her LAD proximally was normal from the mid LAD all the way down to the tip. She had very small vessel, maybe 1 mm. She had an area of about 60-70% stenosis and a vessel that is probably about 1 mm at most. Total conscious sedation wa s 30 minutes. Complications: None. Blood Loss: 5 cc. Final Assessment: Tellcbrv-ln-tkyexm coronary artery disease. Plan: For medical therapy. I think she needs to be on a statin, baby aspirin, probably a calcium ch carolyn dulce, maybe even Imdur or Ranexa down the road if she continues to have symptoms. She was s trongly urged to quit smoking. I will discuss the case further with Dr. Hilton and Dr. Camara. She can go home today and we will see her in the office in about 2-4 weeks. ALONZO/YO Voice ID: [id number] Report ID: [id number]
== END 2017-12-27 16:50 | disposition home or self-care (01) | DRG 282 ==
LOC: ER 06:00 → ERHOLD 09:51 → 3RD-ICU 11:36
PROVIDERS: ADMIT Family Medicine; ATTEND Family Medicine
PROC: 4A023N7 Measurement of Cardiac Sampling and Pressure, Left Heart, Percutaneous Approach (ICD-10-PCS; principal; 2017-12-27)
PROC: B2111ZZ Fluoroscopy of Multiple Coronary Arteries using Low Osmolar Contrast (ICD-10-PCS; 2017-12-27)
DX: I21.4 Non-ST elevation (NSTEMI) myocardial infarction (principal); E78.5 Hyperlipidemia, unspecified; G40.909 Epilepsy, unspecified, not intractable, without status epilepticus; E83.42 Hypomagnesemia; E87.6 Hypokalemia; G89.29 Other chronic pain; I10 Essential (primary) hypertension; F17.210 Nicotine dependence, cigarettes, uncomplicated; J44.9 Chronic obstructive pulmonary disease, unspecified; Z79.82 Long term (current) use of aspirin; I25.10 Atherosclerotic heart disease of native coronary artery without angina pectoris; Z88.5 Allergy status to narcotic agent; Z88.0 Allergy status to penicillin
CPT/HCPCS: 36415; 71045; 80048; 80061; 80076; 80184; 81003; 81025; 82550; 82553; 83735; 83880; 84439; 84443; 84484; 85025; 85610; 93005; 93306; 93454; 96365; 96372; 99285; C1760; C1893; J0583; J1650; J2250; J3010; J3475; J7030

== ENCOUNTER 2019-12-20 21:00 | Emergency (ER) | payer BC, SELFPAY ==
--- OUTSIDE RECORDS SUMMARY | 2019-12-20 21:05 | XMS REPORT | Clinical Summary ---
:1980 Author Organization [facility] Address [address] [place] [address] Care Team Providers Name Role Phone Brandon Camara MD Primary Care Provider [phone] Allergies Active Allergy Reactions Severity Noted Date Comments Atorvastatin 01/23/2018 Morphine High Other reaction( s): Respiratory Distress Penicillins Hives Medium Medications Medication Sig Dispensed Refills Start Date End Date Status PHENobarbital TK 2 TS PO 5 12/11/2017 Acti ve (LUMINAL) 64.8 MG QHS tablet albuterol (PROAIR ProAir HFA 90 0 Active HFA) 90 mcg/actuation mcg/actuation aerosol inhaler inhaler aspirin (ECOTRIN) Take 81 mg by 0 Active 81 MG enteric mouth daily. coated tablet SUBOXONE 8-2 mg DISSOLVE 1 0 02/05/2018 Ac tive film FILM ON THE TONGUE TID fluticasone SPR ONCE IEN 3 02/05/2018 Acti ve (FLONASE) 50 D mcg/actuation nasal spray lisinopril Take 1 tablet 30 tablet 3 01/21/2019 Acti ve (PRINIVIL,ZESTRIL) (10 mg total) 0 10 mg tablet by mouth daily. metoprolol Take 1 tablet 30 tablet 3 01/21/2019 Acti ve succinate XL (25 mg total) (TOPROL-XL) 25 mg by mouth 24 hr tablet daily. isosorbide Take 1 tablet 30 tablet 3 01/21/2019 Acti ve mononitrate (120 mg (IMDUR) 120 MG 24 total) by hr tablet mouth daily. isosorbide TAKE 1 60 tablet 1 02/10/2019 Active mononitrate TABLET(120 (IMDUR) 120 MG 24 MG) BY MOUTH hr tablet DAILY clopidogreL TAKE 1 90 tablet 1 08/15/2019 Active (PLAVIX) 75 mg TABLET(75 MG) tablet BY MOUTH DAILY ranolazine TAKE 1 TABLET 180 tablet 1 10/13/2019 Act paulino (RANEXA) 1,000 mg BY MOUTH 12 hr tablet TWICE DAILY rosuvastatin TAKE 1 90 tablet 3 10/20/2019 Active (CRESTOR) 40 MG TABLET(40 MG) tablet BY MOUTH EVERY NIGHT clopidogrel Take 1 tablet 30 tablet 1 07/19/2018 Dis continued (PLAVIX) 75 mg (75 mg total) 0 tablet by mouth daily. metoprolol Take 1 tablet 90 tablet 1 07/19/2018 Disc ontinued succinate XL (25 mg total) 9 (TOPROL-XL) 25 mg by mouth 24 hr tablet daily. rosuvastatin Take 1 tablet 90 tablet 1 07/19/2018 Di scontinued (CRESTOR) 40 MG (40 mg total) 9 tablet by mouth daily. lisinopril Take 1 tablet 90 tablet 3 07/22/2018 Disc ontinued (PRINIVIL,ZESTRIL) (10 mg total) 9 (Reorder) 10 mg tablet by mouth daily. nitroglycerin 1 under the 100 tablet 1 08/08/2018 Ex pired (NITROSTAT) 0.4 MG tongue as 0 SL tablet needed for angina, may repeat q5mins for up three doses rosuvastatin TAKE 1 90 tablet 0 09/19/2018 Discon tinued (CRESTOR) 40 MG TABLET(40 MG) 9 (Reorder) tablet BY MOUTH EVERY NIGHT metoprolol TAKE 1 90 tablet 0 09/19/2018 Disconti nued succinate XL TABLET(25 MG) 9 (Re order) (TOPROL-XL) 25 mg BY MOUTH 24 hr tablet DAILY clopidogrel TAKE 1 90 tablet 0 09/19/2018 Discont inued (PLAVIX) 75 mg TABLET(75 MG) 9 tablet BY MOUTH DAILY ranolazine Take 1 tablet 60 tablet 3 09/19/2018 Disc ontinued (RANEXA) 1,000 mg (1,000 mg 9 (R eorder) 12 hr tablet total) by mouth 2 (two) times a day. isosorbide Take 1 tablet 30 tablet 3 09/19/2018 Disc ontinued mononitrate (120 mg 9 (Reorder ) (IMDUR) 120 MG 24 total) by hr tablet mouth daily. lisinopril Take 1 tablet 90 tablet 3 01/21/2019 Disc ontinued (PRINIVIL,ZESTRIL) (10 mg total) 9 (Reorder) 10 mg tablet by mouth daily. isosorbide Take 1 tablet 30 tablet 3 01/21/2019 Disc ontinued mononitrate (120 mg 9 (Reorder ) (IMDUR) 120 MG 24 total) by hr tablet mouth daily. rosuvastatin Take 1 tablet 30 tablet 3 01/21/2019 Di scontinued (CRESTOR) 40 MG (40 mg total) 0 tablet by mouth daily. ranolazine TAKE 1 60 tablet 1 02/10/2019 Disconti nued (RANEXA) 1,000 mg TABLET(1000 9 (Reorder) 12 hr tablet MG) BY MOUTH TWICE DAILY ranolazine TAKE ONE 180 tablet 1 03/19/2019 Discont inued (RANEXA) 1,000 mg TABLET BY 0 12 hr tablet MOUTH TWICE DAILY Active Problems Problem Noted Date Essential hypertension 07/22/2018 Cyst of ovary 02/26/2018 Coronary artery disease of [place] artery of [place] hea rt with stable 02/25/2018 angina pectoris Seizure 02/25/2018 NSTEMI (non-ST elevated myocardial infarction) 018 Hyperlipidemia LDL goal <70 01/22/2018 Nicotine addiction 01/22/2018 Chest pain 01/22/2018 Unstable angina pectoris 01/22/2018 Encounters Date Type Specialty Care Team Description 10/18/2019 Refill Cardiology Librado Med Refill MD Efren 10/13/2019 Refill Cardiology [facility] Med Zoraida Schwartz MD 10/02/2019 Orders Only Cardiology Carmela Best MA Coronary artery disease of [place] artery of [place] heart with stable angina pectoris (HCC) (Primary Dx); Chest pain, uns pecified type 08/14/2019 Refill Cardiology Librado Med Refill MD Efren 03/19/2019 Refill Cardiology Tylor Pavon Refill MD Efren 02/10/2019 Refill Cardiology Tylor Pavon Refill MD Efern 02/10/2019 Refill Cardiology Librado, Tylor Doddill MD Efren 01/20/2019 Refill Cardiology Librado, Med Refill MD Efren after 12/19/2018 Family History Medical History Relation Name Comments Atrial fibrillation Father azra porter Hypertension Father azra porter Diabetes Maternal Aunt geraldine porter Lymphoma Maternal Aunt Gabriela Herman Thyroid disease Maternal Aunt Gabriela Herman passed from lymp sheila COPD Maternal Grandfather Martinez Echeverria Heart failure Maternal Grandfather Martinez Echeverria Hypertension Maternal Grandfather Martinez Echeverria Cancer Maternal Grandmother Geraldine Porter stomach can cer Coronary artery disease Maternal Grandmother Geraldine Porter Valvular heart disease Mother Hypertension Paternal Grandmother Sierra Echeverria Relation Name Status Comments Father azra porter Maternal Aunt geraldine porter Maternal Aunt Gabriela Herman Maternal Grandfather Martinez Echeverria Maternal Grandmother Geraldine Porter Mother Paternal Grandmother Sierra Echeverria Social History Tobacco Use Types Packs/Day Years Used Date Former Smoker Cigarettes 0.25 25 Quit: 12/27/19 18 Smokeless Tobacco: Never Used Alcohol Use Drinks/Week oz/Week Comments No Sex Assigned at Date Recorded Female 01/13/2019 11:04 AM CDT Job Start Date Occupation Industry Not on file Not on file Not on file Travel History Travel Start Travel End No recent travel history available. 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
[2019-12-20] MEDS ORDERED: LORazepam 2 MG/ML VIAL ONE (21:29)
--- NOTE | 2019-12-21 05:20 | ER ---
Nurse's Notes [facility] Name: Cira Nixon Age: 39 yrs Sex: Female : 1980 Arrival Date: 12/20/2019 Time: 21:11 Bed 20 Private MD: Diagnosis: Alcohol Intoxication;Head Contusion Presentation: 12/19 21:16 Chief complaint: EMS states: pt was found by her crawling on the ground of sg their home and confused. pt positive for ETOH, reports having taken her prescribed medications as well. Coronavirus screen: Patient denies a cough. Patient denies shortness of breath or difficulty breathing. Patient denies measured and/or subjective temperature greater than 100.4F prior to today's visit. Patient denies travel on a cruise ship or to a country the [facility] currently lists as an affected area. Patient denies contact with known and/or suspected case of COVID-19. per EMS screening [employer]. Ebola Screen: Patient negative for fever greater than or equal to 101.5 degrees Fahrenheit, and additional compatible Ebola Virus Disease symptoms Patient denies exposure to infectious person. Patient denies travel to an Ebola-affected area in the 21 days before illness onset. No symptoms or risks identified at this time. Initial Sepsis Screen: Does the patient meet any 2 criteria? No. Patient's initial sepsis screen is negative. Does the patient have a suspected source of infection? No. Patient's initial sepsis screen is negative. Risk Assessment: Do you want to hurt yourself or someone else? Patient reports no desire to harm self or others. Note this pt is noted to be in 2 point restraints at this time, screaming loudly and unintelligible. Onset of symptoms was December 20, 2019. Care prior to arrival: IV initiated. 18 GA, in the left antecubital area. Transition of care: patient was not received from another setting of care. 21:16 Acuity: ALEKSANDR 2 sg 21:16 Method Of Arrival: EMS: [facility] sg 21:25 Note pt screaming at ER staff at this time, states " Im 16 years old and I don't have sg to stay here." pt placed back into bed, pt continues to cry at this time. Triage Assessment: 21:00 General: Appears uncomfortable, Behavior is combative, restless, uncooperative. Pain: mt2 Denies pain. Historical: - Allergies: 21:23 Morphine; sg 21:23 PENICILLINS; sg - PMHx: 21:23 chronic neck pain; Seizure Disorder; sg - PSHx: 21:23 Hysterectomy; foot surgery; sg - Immunization history:: Adult Immunizations unknown. - Social history:: Smoking status: unknown Patient uses alcohol, weekly. Screenin:00 Abuse screen: Denies threats or abuse. Nutritional screening: No deficits noted. mt2 Tuberculosis screening: No symptoms or risk factors identified. Fall Risk Gait- Impaired (20 pts.). Assessment: 21:12 Reassessment: pt crying, uncooperative, attempting to get out of bed at this time, pt sg placed back into bed, pt thrashing extremities wildly and hitting side rails, attempt to protect patient by placing back into bed and protecting arms and legs of pt, pt calmed, and is crying again. notified, orders received, pt medicated by Suzanne HERNANDEZ. 22:00 Reassessment: PT SEDATED AND SLEEPING. AIRWAY PATENT. General: Appears in no apparent mt2 distress. comfortable, Behavior is. Pain: Denies pain. 23:00 Reassessment: No changes from previously documented assessment. Patient and/or family mt2 updated on plan of care and expected duration. Pain level reassessed. 12/20 00:00 Reassessment: No changes from previously documented assessment. Patient and/or family mt2 updated on plan of care and expected duration. Pain level reassessed. General: Appears in no apparent distress. comfortable, Behavior is sedated. Pain: Denies pain. 01:00 Reassessment: No changes from previously documented assessment. Patient and/or family mt2 updated on plan of care and expected duration. Pain level reassessed. 02:00 Reassessment: No changes from previously documented assessment. Patient and/or family mt2 updated on plan of care and expected duration. Pain level reassessed. 03:00 Reassessment: No changes from previously documented assessment. Patient and/or family mt2 updated on plan of care and expected duration. Pain level reassessed. 04:03 Reassessment: No changes from previously documented assessment. Patient and/or family mt2 updated on plan of care and expected duration. Pain level reassessed. General: Appears comfortable, Behavior is calm, quiet. 05:00 Reassessment: Patient and/or family updated on plan of care and expected duration. Pain mt2 level reassessed. Patient denies pain at this time. Patient states feeling better. Patient states symptoms have improved. General: Appears comfortable, Behavior is cooperative. Neuro: No deficits noted. 06:00 Reassessment: No changes from previously documented assessment. Patient and/or family mt2 updated on plan of care and expected duration. Pain level reassessed. Patient states symptoms have improved. 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 PT ALERT AND ORIENTED. . Vital Signs: 12/19 21:00 BP 137 / 101; Pulse 114; Resp 21; Pulse Ox 99% ; Pain 0/10; mt2 21:29 BP 122 / 71; Pulse 93; Resp 16; Pulse Ox 95% ; Pain 0/10; mt2 22:00 BP 119 / 72; Pulse 93; Resp 20; Pulse Ox 95% ; Pain 0/10; mt2 23:00 BP 117 / 69; Pulse 94; Resp 21; Pulse Ox 96% ; Pain 0/10; mt2 12/20 00:00 BP 139 / 91; Pulse 91; Resp 19; Pulse Ox 99% on R/A; Pain 0/10; mt2 01:00 BP 157 / 97; Pulse 93; Resp 20; Pulse Ox 100% on R/A; Pain 0/10; mt2 02:00 BP 123 / 84; Pulse 88; Resp 17; Temp 98.0(TE); Pulse Ox 99% on R/A; Pain 0/10; mt2 03:05 BP 147 / 63; Pulse 83; Resp 17; Pulse Ox 99% on R/A; mt2 04:04 BP 109 / 67; Pulse 101; Temp 98.3(TE); Pulse Ox 97% on R/A; Pain 0/10; mt2 05:00 BP 132 / 83; Pulse 91; Resp 16; Temp 97.9(O); Pulse Ox 98% on R/A; Pain 0/10; mt2 06:00 BP 133 / 69; Pulse 91; Resp 16; Pulse Ox 97% on R/A; Pain 0/10; mt2 ED Course: 12/19 21:00 Appears combative. Appears restless. Appears tearful. mt2 21:00 Patient has correct armband on for positive identification. Bed in low position. Call mt2 light in reach. Side rails up X2. 21:00 Maintain EMS IV. Dressing intact. Good blood return noted. Site clean \\T\\ dry. Gauge \\T\\ mt 2 site: 18 left forarm. Flushed forearm Converted IV to saline lock on. 21:11 Patient arrived in ED. 21:11 Anatoly Wu MD is Attending Physician. [facility] 21:16 Arm band placed on. 21:17 Suzanne Alvarado, DAVID is Primary Nurse. mt2 21:22 Triage completed. sg 21:49 Alcohol Level Sent. mt2 21:49 Test, Serum Sent. mt2 22:11 pts daughter Karen Feldman [phone]. [facility] 12/20 01:17 CT Head C Spine In Process Unspecified. EDMS 01:35 UDS Sent. mt2 Administered Medications: 12/19 21:17 Drug: Ativan 1 mg Route: IVP; Site: left antecubital; mt2 21:29 Follow up: BP 122 / 71; Pulse 93 bpm; Resp 16 bpm; Pulse Ox 95% ; Pain 0/10 Adult; mt2 Response: No adverse reaction; Patient is sedated; RASS: Light sedation (-2) Outcome: 12/20 05:19 [address] . [facility] 06:06 Patient left the ED. Signatures: Dispatcher [employer] EDMS Barry Beltran, RN RN Terrie Luke 2 Anatoly Wu MD MD [facility] Suzanne Alvarado, DAVID RN ut2
--- NOTE | 2019-12-21 05:20 | EDPHYS ---
Physician Documentation [facility] Name: Cira Nixon Age: 39 yrs Sex: Female : 1980 Arrival Date: 12/20/2019 Time: 21:11 Bed 20 Private MD: ED Physician Anatoly Wu HPI: 12/19 21:25 This 39 yrs old Female presents to ER via EMS with complaints of Alcohol mh7 Intoxication. 21:25 The patient presents to the emergency department. mh7 21:27 Alcohol Intoxication. Onset: The symptoms/episode began/occurred today. Severity of mh7 symptoms: At their worst the symptoms were moderate today, in the emergency department the symptoms are unchanged. Unable to obtain HPI due to Intoxicated. Per EMS, patient's called EMS due to patient being intoxicated and banging her head on the floor at home. Patient reportedly drank Goldschlager then later became combative and started banging her head on the floor.. Historical: - Allergies: 21:23 Morphine; sg 21:23 PENICILLINS; sg - PMHx: 21:23 chronic neck pain; Seizure Disorder; sg - PSHx: 21:23 Hysterectomy; foot surgery; sg - Immunization history:: Adult Immunizations unknown. - Social history:: Smoking status: unknown Patient uses alcohol, weekly. ROS: 21:27 Unable to obtain ROS due to patient being uncooperative, Intoxicated. mh7 Exam: 21:27 Head/Face: Normocephalic, atraumatic. Eyes: Pupils equal round and reactive to light, mh7 extra-ocular motions intact. Lids and lashes normal. Conjunctiva and sclera are non-icteric and not injected. Cornea within normal limits. Periorbital areas with no swelling, redness, or edema. Neck: Trachea midline, no thyromegaly or masses palpated, and no cervical lymphadenopathy. Supple, full range of motion without nuchal rigidity, or vertebral point tenderness. No Meningismus. Chest/axilla: Normal chest wall appearance and motion. Nontender with no deformity. No lesions are appreciated. Cardiovascular: Regular rate and rhythm with a normal S1 and S2. No gallops, murmurs, or rubs. Normal PMI, no JVD. No pulse deficits. Respiratory: Lungs have equal breath sounds bilaterally, clear to auscultation and percussion. No rales, rhonchi or wheezes noted. No increased work of breathing, no retractions or nasal flaring. Abdomen/GI: Soft, non-tender, with normal bowel sounds. No distension or tympany. No guarding or rebound. No evidence of tenderness throughout. Back: No spinal tenderness. No costovertebral tenderness. Full range of motion. Skin: Warm, dry with normal turgor. Normal color with no rashes, no lesions, and no evidence of cellulitis. MS/ Extremity: Pulses equal, no cyanosis. Neurovascular intact. Full, normal range of motion. 21:27 Constitutional: The patient appears alert, awake, agitated, smells of alcohol, ETOH, Appears intoxicated 21:27 Neuro: Orientation: unable to test, the patient is clinically intoxicated, Mentation: unable to test, the patient is clinically intoxicated, Memory: unable to test, the patient is clinically intoxicated, Cranial nerves: unable to test, the patient is clinically intoxicated, Cerebellar function: unable to test, the patient is clinically intoxicated, Motor: is normal, moves all fours, Sensation: is normal, Gait: not tested. seizure activity, is not displayed by the patient, Abnormal movements: there are no abnormal movements. 21:27 Psych: Behavior/mood is uncooperative, Intoxicated. Affect is animated. Vital Signs: 21:00 BP 137 / 101; Pulse 114; Resp 21; Pulse Ox 99% ; Pain 0/10; mt2 21:29 BP 122 / 71; Pulse 93; Resp 16; Pulse Ox 95% ; Pain 0/10; mt2 22:00 BP 119 / 72; Pulse 93; Resp 20; Pulse Ox 95% ; Pain 0/10; mt2 23:00 BP 117 / 69; Pulse 94; Resp 21; Pulse Ox 96% ; Pain 0/10; mt2 12/20 00:00 BP 139 / 91; Pulse 91; Resp 19; Pulse Ox 99% on R/A; Pain 0/10; mt2 01:00 BP 157 / 97; Pulse 93; Resp 20; Pulse Ox 100% on R/A; Pain 0/10; mt2 02:00 BP 123 / 84; Pulse 88; Resp 17; Temp 98.0(TE); Pulse Ox 99% on R/A; Pain 0/10; mt2 03:05 BP 147 / 63; Pulse 83; Resp 17; Pulse Ox 99% on R/A; mt2 04:04 BP 109 / 67; Pulse 101; Temp 98.3(TE); Pulse Ox 97% on R/A; Pain 0/10; mt2 05:00 BP 132 / 83; Pulse 91; Resp 16; Temp 97.9(O); Pulse Ox 98% on R/A; Pain 0/10; mt2 06:00 BP 133 / 69; Pulse 91; Resp 16; Pulse Ox 97% on R/A; Pain 0/10; mt2 MDM: 12/19 21:11 Patient medically screened. [facility] 12/20 05:17 Differential Diagnosis altered mental status, Alcohol Intoxication, Substance Abuse. [facility] Data reviewed: vital signs, nurses notes, EMS record, lab test result(s), urine drug screen, radiologic studies, CT scan. Data interpreted: Pulse oximetry: on room air is 97 %. Interpretation: normal. Counseling: I had a detailed discussion with the patient and/or guardian regarding: the historical points, exam findings, and any diagnostic results supporting the discharge/admit diagnosis, lab results, radiology results, the need for outpatient follow up, to return to the emergency department if symptoms worsen or persist or if there are any questions or concerns that arise at home. Response to treatment: the patient's symptoms have resolved after treatment, the patient's blood pressure is in an acceptable range, mental status has returned to baseline, the patient no longer shows bradycardia, the patient is not short of breath, the patient is not tachycardic, the patient's pain is gone, the patient's temperature has normalized. 12/19 21:35 Order name: Test, Serum; Complete Time: 23:03 2 12/19 21:35 Order name: Alcohol Level; Complete Time: 23:03 2 12/19 21:21 Order name: CT Head C Spine [facility] Administered Medications: 12/19 21:17 Drug: Ativan 1 mg Route: IVP; Site: left antecubital; mt2 21:29 Follow up: BP 122 / 71; Pulse 93 bpm; Resp 16 bpm; Pulse Ox 95% ; Pain 0/10 Adult; mt2 Response: No adverse reaction; Patient is sedated; RASS: Light sedation (-2) Disposition: 12/21/19 05:19 Discharged to Home. Impression: Alcohol Intoxication, Head Contusion. - Condition is Stable. - Discharge Instructions: Alcohol Intoxication, Jquv-ev-Nxjz, Contusion, Xsps-gl-Trak. - Medication Reconciliation Form, Thank You Letter, Antibiotic Education, Prescription Opioid Use form. - Follow up: Private Physician; When: 1 - 2 days; Reason: Worsening of condition, Recheck today's complaints, Continuance of care, Re-evaluation by your physician. - Problem is new. - Symptoms are resolved. Signatures: Dispatcher [employer] EDMS Barry Beltran RN RN sg Anatoly Wu MD MD mh7 Suzanne Alvarado RN RN mt2 Corrections: (The following items were deleted from the chart) 12/20 06:06 05:19 12/21/2019 05:19 Discharged to Home. Impression: Alcohol Intoxication; Head sg Contusion. Condition is Stable. Forms are Medication Reconciliation Form, Thank You Letter, Antibiotic Education, Prescription Opioid Use. Follow up: Private Physician; When: 1 - 2 days; Reason: Worsening of condition, Recheck today's complaints, Continuance of care, Re-evaluation by your physician. Problem is new. Symptoms are resolved. mh7
[2019-12-21] MEDS ORDERED: ACETAMINOPHEN 500 MG TAB ONE (05:58)
[2019-12-21 06:24] VITALS: BP 109/67; TEMP 98.3; O2SAT 97
--- NOTE | 2019-12-22 09:41 | RAD REPORT ---
EXAM DESCRIPTION: CT Head Without Intravenous Contrast CLINICAL HISTORY: The patient is 37 years old and is Female; HEADACHE TECHNIQUE: Axial computed tomography images of the head/brain without intravenous contrast. Sagitt al and coronal reformatted images were created and reviewed. This CT exam was performed using one o r more of the following dose reduction techniques: automated exposure control, adjustment of the mA and/or kV according to patient size, and/or use of iterative reconstruction technique. COMPARISON: No relevant prior studies available. FINDINGS: BRAIN: Unremarkable. The tovar-white matter differentiation is preserved . No hemorrhag e. No significant white matter disease. No edema. No extra-axial fluid collections. VENTRICLES: Unremarkable. No ventriculomegaly. BONES/JOINTS: No acute fracture. SOFT TISSUES: Unremarkable. SINUSES: Unremarkable as visualized. No acute sinusitis. MASTOID AIR CELLS: Unremarkable as visualized. No mastoid effusion. ORBITS: Unremarkable as visualized. IMPRESSION: No acute intracranial findings. Electronically signed by: Melina Guerrier MD 12/21/2019 1:34 AM CDT Due to temporary technical issues with the PACS/Fluency reporting system, reports are being signed by the in house radiologist without review as a courtesy to ensure prompt reporting. The interpreting r adiologist is fully responsible for the content of the report.
== END 2019-12-21 06:06 | disposition home or self-care (01) ==
LOC: ER 21:00
DX: F10.129 Alcohol abuse with intoxication, unspecified (principal); Z88.0 Allergy status to penicillin; Z88.5 Allergy status to narcotic agent
CPT/HCPCS: 36415; 70450; 72125; 80320; 84703; 96374; 99285

== ENCOUNTER 2022-07-12 16:10 | Inpatient (IN) | payer BC, SELFPAY ==
--- OUTSIDE RECORDS SUMMARY | 2022-07-12 16:14 | XMS REPORT | Continuity of Care Document ---
:1980 Author Organization [facility] t Address [address] [place] [address] Care Team Providers Name Role Phone TIFFANIE CRAMER Primary Care Physician Unavailable NADIRA WHARTON Attending Clinician Unavailable Nadira Wharton MD Attending Clinician G_Pappas Attending Clinician Unavailable G_Pappas Admitting Clinician Unavailable Payers Payer Name Policy Type Policy Number Effective Date Expiration Date S toya [facility] [id number] 2021 00:00:00 [facility] [id number] [facility]: [place] [facility] [id number] 2012 (PPO) 00:00:00 Problems Condition Condition Condition Status Onset Resolution Last Treating Co mments Source Name Details Category Date Date Treatment Clinician Date Essential Essential Problem Active 2019-06 [place] hypertensi Hypertensi 1-24 da on on 00:00: Medical 00 Group Female Female Problem Active 2019-06 [place] stress Stress 1-24 da incontinen Incontinen 00:00: Me dical ce ce 00 Group Chronic Chronic Problem Active 2019-06 [place] pelvic Pelvic 1-24 da pain of Pain of 00:00: Medical female Female 00 Group History of History of Problem Active 2019-06 M [place] dysplasia Dysplasia 1-24 da of cervix of Cervix 00:00: Medi yuliya 00 Group Essential Essential Disease Active Met hodi hypertensi hypertensi 2-18 st on on 00:00: Hospita 00 l Cyst of Cyst of Disease Active Methodi ovary ovary 02-26 st 00:00: Hospita 00 l 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 9 st disease of disease of 00:00: [facility] [place] artery of artery of [place] heart with heart with stable stable angina angina pectoris pectoris Seizure Seizure Disease Active Methodi 9 st 00:00: Hospita 00 l NSTEMI NSTEMI Disease Active Methodi (non-ST (non-ST 8 st elevated elevated 00:00: Hospit a myocardial myocardial 00 l infarction infarction ) ) Hyperlipid Hyperlipid Disease Active M ethodi emia LDL emia LDL 8 st goal <70 goal <70 00:00: Hospit a 00 l Nicotine Nicotine Disease Active Metho di addiction addiction 01-22 st 00:00: Hospita 00 l Chest pain Chest pain Disease Active M ethodi 01-22 st 00:00: Hospita 00 l Unstable Unstable Disease Active Metho di angina angina 8 st pectoris pectoris 00:00: Hospit a 00 l No known No known Disease Unive rs active active ity of problems problems [place] [facility] Allergies, Adverse Reactions, Alerts Allergy Allergy Status Severity Reaction(s) Onset Inactive Treating Comm ents Source Name Type Date Date Clinician Morphine Drug Active Shortness of Other Un marleny Allergy Breath 07-30 reaction( ity of 00:00: s): Respirato Medical ry Branch DistressO ther reaction( s): Respirato ry Distress Penicill Drug Active Other - See Uni vers ins Allergy comments 07-30 ity of 00:00: Medical Branch MORPHINE DRUG Active High Other-Cmnt Univ ers INGREDI 2- ity of 00:00: Medical Branch PENICILL Drug Active Med Hives Univers INS Class 2- ity of 00:00: Medical Branch Atorvast Propensi Active Method i atin ty to 822 st adverse 00:00: Hospita reaction 00 l s to drug Atorvast Propensi Active Unknown - Uni vers atin ty to See comments 01-23 ity of adverse 00:00: [place] reaction 00 Medical s Branch ATORVAST DRUG Active Unknown-Cmnt 0 Un marleny ATIN INGREDI 01-23 ity of 00:00: [place] 00 Medical Branch NO KNOWN Drug Active Univers ALLERGIE Class ity of S [facility] Morphine Propensi Active Other Method i ty to reaction( st adverse s): Hospita reaction Respirato l s to ry drug Distress Penicill Propensi Active Hives Method i ins ty to st adverse Hospita reaction l s to drug Morphine Allergy Active Severe Respiratory [place] to distress da substanc Medical e Group PENICILL Allergy Active Mild to Hives [place] INS to moderate da substanc Medical e Group Family History Family Member Diagnosis Comments Start Date Stop Date Source Maternal COPD [facility] Maternal Heart failure [facility] Maternal Hypertension [facility] Maternal Cancer [facility] [place] Maternal Coronary artery [facility] disease [facility] Natural mother Valvular heart Method [facility] Paternal Hypertension [facility] [place] Natural father Atrial fibrillation [facility] [place] [facility] Natural father [facility]pertension [facility] Maternal aunt Diabetes [facility] Maternal aunt Lymphoma [facility] Maternal aunt Thyroid disease Method [facility] Social History Social Habit Start Date Stop Date Quantity Comments Source Exposure to 2022-02-08 2022-02-18 Not sure [facility] SARS-CoV-2 (event) 00:00:00 19:17:00 [facility] Tobacco use and 2022-02-18 2022-02-18 Smokeless Universit y of exposure 00:00:00 00:00:00 tobacco non-user [facility] [place] Alcohol intake 2018-07-22 2018-07-22 Current Jainism 00:00:00 00:00:00 non-drinker of Hospital alcohol (finding) Cigarettes smoked 2018-04-15 2018-04-[address] current (pack per 00:00:00 00:00:00 Hospita l day) - Reported Cigarette 2018-04-15 2018-04-15 Jainism pack-years 00:00:00 00:00:00 Hospital History of tobacco 2017-12-26 Current smoker Me thodist use 00:00:00 Hospital Sex Ass[birth year] At [birth year] Universit y of 00:00:00 00:00:00 [facility] Smoking Status Start Date Stop Date Source Never smoked tobacco [facility] Ex-smoker 2018-04-15 00:00:00 2018-04-15 00:00:00 [facility] Hospital Medications Ordered Filled Start Stop Current Ordering Indication Dosage Frequency Signature Comments Components Source Medication Medication Date Date Medication? Clinician (SIG) Name Name buprenorphi 2021- No buprenorph Univers ne HCL 8 mg 02-18 ine HCl 8 it y of sublingual 19:38: 00:00 mg [place] tablet 58 :00 sublingual Medical tablet Branch DISSOLVE 1 T ON THE TONGUE BID metroNIDAZO 2021- No metronidaz Univers LE 500 mg 02-18 ole 500 mg ity of tablet 19:38: 00:00 tablet [place] 55 :00 Medical Branch rosuvastati 2021- No rosuvastat Univers n 40 mg 02-18 in 40 mg ity of tablet 19:38: 00:00 tablet [place] 49 :00 [facility] Branch tiZANidine 2021- No tizanidine Univers 4 mg tablet 02-18 4 mg ity of 19:38: 00:00 tablet [place] 46 :00 Medical Branch metoprolol 2021- No metoprolol Univers succinate 02-18 succinate ity of XL 25 mg 24 19:38: 00:00 ER 25 mg [place] hr tablet 34 :00 tablet,ext [facility] ended Branch release 24 hr ipratropium 2021- No ipratropiu Univers 42 mcg 02-18 m bromide ity of (0.06 %) 19:38: 00:00 42 mcg [place] nasal spray 31 :00 (0.06 %) [facility] nasal Branch spray methocarbam 2021- No methocarba Univers oL 500 mg 02-18 mol 500 mg ity of tablet 19:38: 00:00 tablet [place] 28 :00 [facility] Branch lisinopriL 2021- No lisinopril Univers 10 mg 02-18 10 mg ity of tablet 19:38: 00:00 tablet [place] 22 :00 Medical Branch isosorbide 2021- No isosorbide Univers mononitrate 02-18 mononitrat i ty of 120 mg 24 19:38: 00:00 e ER 120 Ashutosh as hr tablet 16 :00 mg Medical tablet,ext Branch ended release 24 hr gabapentin 2021- No gabapentin Univers 300 mg 02-18 300 mg ity of capsule 19:38: 00:00 capsule 13 :00 [facility] Branch azithromyci 2021- No azithromyc Univers n 250 mg 02-18 in 250 mg ity o f tablet 19:38: 00:00 tablet 07 :00 [facility] Branch aspirin 81 2021- No 81mg Take 81 mg Univers mg EC 02-18 by mouth. ity of tablet 19:38: 00:00 [place] 04 :00 [facility] albuterol 2021- No Ventolin Uni vers (VENTOLIN 02-18 HFA 90 ity of HFA) 90 19:37: 00:00 mcg/actuat [place] as mcg/actuati 55 :00 [facility] Medical on inhaler aerosol Branch inhaler INL 2 PUFFS PO Q 6 H PRF WHEEZING. clarithromy 2021- No clarithrom Univers luke 500 mg 02-18 ycin 500 ity of tablet 19:37: 00:00 mg tablet [place] 28 :00 [facility] doxycycline 2021- No doxycyclin Univers hyclate 100 02-18 e hyclate it y of mg capsule 19:35: 00:00 100 mg [place] 15 :00 capsule [facility] predniSONE 2021- No prednisone Univers 10 mg 02-18 10 mg ity of tablet 19:35: 00:00 tablet [place] 15 :00 [facility] PHENobarbit Yes phenobarbi Univers aL 64.8 mg 02-18 nan 64.8 ity o f tablet 19:21: mg tablet 30 [facility] Ranolazine Yes ranolazine U nivers 1,000 mg 02-18 ER 1,000 ity of tablet 19:21: mg [place] 30 tablet,ext Medical ended Branch release,12 hr Take by oral route for 90 days. bromphenira Yes [id number] 5mL Take 5 mL Univers mine-pseudo 02-18 by mouth 4 it y of ephedrine-D 00:00: (four) [place] M (BROMFED 00 times Medical DM) 2-30-10 daily as Bran ch mg/5 mL needed for syrup Congestion /Allergies . methylPREDN Yes [id number] Take by Univers ISolone 02-18 mouth ity of (MEDROL, 00:00: SEE-INSTRU [place] as CAMERON,) 4 mg 00 CTIONS. Medica l tablets follow Branch package directions doxycycline 2021- No [id number] 100mg Take 1 Univers hyclate 100 02-18 tablet by it y of mg tablet 00:00: 04:59 mouth in [place]osh as 00 :00 the Medical morning Branch and 1 tablet in the evening. Do all this for 10 days. bromphenira 2021- No [id number] 5mL Take 5 mL Univers mine-pseudo 02-18 by mouth 4 i ty of ephedrine-D 00:00: 00:00 (four) [place]osh as M (BROMFED 00 :00 times Medical DM) 2-30-10 daily as Bran ch mg/5 mL needed for syrup Congestion /Allergies . methylPREDN 2021- No [id number] Take by Univers ISolone 02-18 mouth ity of (MEDROL, 00:00: 00:00 [place]-INSTRU [place] CAM[place]ON,) 4 mg 00 :00 CTIONS. Medica l tablets follow Branch package directions dextroamphe 2021- No Unive rs tamine-amph 02-13 ity of etamine 10 00:00: 00:00 [place] mg tablet 00 :00 Medical Branch montelukast Yes Univer s 10 mg 9-07 ity of tablet 00:00: [place] 00 Medical Branch valACYclovi Yes Univer s r 500 mg 8-30 ity of tablet 00:00: 00 Medical Branch clindamycin 2021- No Unive rs 150 mg 12-29 ity of capsule 00:00: 00:00 [place] 00 :00 Medical Branch acetaminoph 2021- No Unive rs en-codeine 12-28 ity of 300-30 mg 00:00: 00:00 [place] tablet 00 :00 Medical Branch amoxicillin 2021- No Unive rs 875 mg 12-28 ity of tablet 00:00: 00:00 [place] 00 :00 Medical Branch azelastine Yes USE 2 Univer s 137 mcg 12-03 SPRAYS IN ity of (0.1 %) 00:00: EACH [place] nasal spray 00 NOSTRIL Medic al TWICE Branch DAILY benzonatate 2021- No TAKE 1 Uni vers 200 mg 12-03 CAPSULE BY ity of capsule 00:00: 00:00 MOUTH [place] 00 :00 THREE Medical TIMES Branch DAILY NEEDED FOR COUGH clopidogreL Yes 75mg QD Take 1 Meth dov (PLAVIX) 75 8-20 tablet (75 st mg tablet 00:00: mg total) Hos nidhi 00 by mouth l daily. clopidogreL 2021- No clopidogre Univers 75 mg 01-21 l 75 mg ity of tablet 00:00: 00:00 tablet [place] 00 :00 Medical Branch rosuvastati Yes 40mg QD Take 1 Meth dov n (CRESTOR) 5-11 tablet (40 st 40 MG 00:00: mg total) Hospita tablet 00 by mouth l nightly. carvediloL 2021- No 12.5mg Q.5D Take 1 Me thodi (COREG) 5-03 05-[address] 12.5 MG 00:00: 04:59 (12.5 mg Hospi ta tablet 00 :00 total) by l mouth 2 (two) times a day. lisinopriL Yes 10mg QD Take 1 Metho di (PRINIVIL) 9-25 tablet (10 st 10 mg 00:00: mg total) Hospita tablet 00 by mouth l daily. isosorbide Yes 120mg QD Take 1 Meth dov mononitrate 8-[address] (IMDUR) 120 00:00: (120 mg Hos nidhi MG 24 hr 00 total) by l tablet mouth daily. ranolazine Yes TAKE 1 Metho di (RANEXA) 5-[address] 1,000 mg 12 00:00: MOUTH Hospi ta hr tablet 00 TWICE l DAILY isosorbide Yes 120mg QD Take 1 Meth dov mononitrate 8-[address] (IMDUR) 120 00:00: (120 mg Hos nidhi MG 24 hr 00 total) by l tablet mouth daily. albuterol 2017-06 Yes ProAir HFA Me thodi (PROAIR 1-[address] HFA) 90 13:25: mcg/actuat Hosp vanesa mcg/actuati 15 ion l on inhaler aerosol inhaler aspirin 2017-06 Yes 81mg QD Take 81 mg Meth dov (ECOTRIN) [address] 81 MG 13:25: daily. Hospita enteric 15 l coated tablet SUBOXONE Yes DISSOLVE 1 Met hodi 8-2 mg film 02-[address] 00:00: THE TONGUE Hospita 00 TID l fluticasone Yes SPR ONCE Me thodi (FLONASE) 02-[address] 50 00:00: Hospita mcg/actuati 00 l on nasal spray PHENobarbit Yes TK 2 TS PO Methodi al 7-[address] (LUMINAL) 00:00: Hospita 64.8 MG 00 l tablet ranolazine ranolazine No ranolazine [place] ER 1,000 mg ER 1,000 mg ER 1,000 da tablet,exte tablet,exte mg M edical nded nded tablet,ext Group release,12 release,12 ended hr Take by hr Take by release,12 oral route oral route hr Take by for 90 for 90 oral route days. days. for 90 days. rosuvastati rosuvastati No rosuvastat [place] n 40 mg n 40 mg in 40 mg da tablet TK 1 tablet TK 1 tablet TK Medical T PO QD T PO QD 1 T PO QD Grou p tizanidine tizanidine No tizanidine [place] 4 mg tablet 4 mg tablet 4 mg d a tablet Medical Group valacyclovi valacyclovi No valacyclov [place] r 1 gram r 1 gram ir 1 gram da tablet TK 2 tablet TK 2 tablet TK Medical TS PO Q 12 TS PO Q 12 2 TS PO Q Group H FOR 1 H FOR 1 12 H FOR 1 DAY. THIS DAY. THIS DAY. THIS DOSE IS FOR DOSE IS FOR DOSE IS WHEN YOU WHEN YOU FOR WHEN HAVE AN HAVE AN YOU HAVE OUTBREAK. OUTBREAK. AN OUTBREAK. valacyclovi valacyclovi No valacyclov [place] r 500 mg r 500 mg ir 500 mg da tablet tablet tablet Medical Group Ventolin Ventolin No Ventolin [place] HFA 90 HFA 90 HFA 90 da mcg/actuati mcg/actuati mcg/actuat Medical on aerosol on aerosol ion Juan Antonio up inhaler INL inhaler INL aerosol 2 PUFFS PO 2 PUFFS PO inhaler Q 6 H PRF Q 6 H PRF INL 2 WHEEZING. WHEEZING. PUFFS PO Q 6 H PRF WHEEZING. buprenorphi buprenorphi No buprenorph [place] ne HCl 8 mg ne HCl 8 mg ine HCl 8 da sublingual sublingual mg Med ical tablet tablet sublingual Group DISSOLVE 1 DISSOLVE 1 tablet T ON THE T ON THE DISSOLVE 1 TONGUE BID TONGUE BID T ON THE TONGUE BID clopidogrel clopidogrel No clopidogre [place] 75 mg 75 mg l 75 mg da tablet tablet tablet Medical Group gabapentin gabapentin No gabapentin [place] 300 mg 300 mg 300 mg da capsule capsule capsule Medica l Group isosorbide isosorbide No isosorbide [place] mononitrate mononitrate mononitrat da ER 120 mg ER 120 mg e ER 120 M edical tablet,exte tablet,exte mg G roup nded nded tablet,ext release 24 release 24 ended hr hr release 24 hr lisinopril lisinopril No lisinopril [place] 10 mg 10 mg 10 mg da tablet tablet tablet Medical Group LoSeasoniqu LoSeasoniqu No 1 Q1D LoSeasoniq [place] e 0.10 e 0.10 ue 0.10 da mg-20 mcg mg-20 mcg mg-20 mcg Medical (84)/10 (84)/10 (84)/10 Group mcg(7) mcg(7) mcg(7) tablets,3 tablets,3 tablets,3 month dose month dose month dose pack Take 1 pack Take 1 pack Take tablet tablet 1 tablet every day every day every day by oral by oral by oral route. route. route. methocarbam methocarbam No methocarba [place] ol 500 mg ol 500 mg mol 500 mg da tablet TK 1 tablet TK 1 tablet TK Medical TO 2 TS PO TO 2 TS PO 1 TO 2 TS Group TID PRF TID PRF PO TID PRF SPASMS SPASMS SPASMS methylpredn methylpredn No methylpred [place] isolone 4 isolone 4 nisolone 4 da mg tablets mg tablets mg tablets Medical in a dose in a dose in a dose Group pack pack pack metoprolol metoprolol No metoprolol [place] succinate succinate succinate da ER 25 mg ER 25 mg ER 25 mg Med ical tablet,exte tablet,exte tablet,ext Group nded nded ended release 24 release 24 release 24 hr hr hr phenobarbit phenobarbit No phenobarbi [place] al 64.8 mg al 64.8 mg nan 64.8 da tablet TK 2 tablet TK 2 mg tablet Medical TS PO QHS TS PO QHS TK 2 TS PO Group QHS Vital Signs Vital Name Observation Time Observation Value Comments Source Oxygen saturation in 2022-02-19 00:18:00 97 /min [facility] Arterial blood by [facility] Pulse oximetry Branch Systolic blood 2022-02-19 00:18:00 126 mm[Hg] [facility] Diastolic blood 2022-02-19 00:18:00 82 mm[Hg] [facility] Heart rate 2022-02-19 00:18:00 112 /min [facility] Body temperature 2022-02-19 00:18:00 36.83 [facility] Respiratory rate 2022-02-19 00:18:00 16 /min [facility] Body height 2022-02-19 00:18:00 172.7 cm [facility] Body weight 2022-02-19 00:18:00 63.458 kg [facility] BMI 2022-02-19 00:18:00 21.27 kg/m2 [facility] BP Diastolic 2020-05-07 00:00:00 83 mm[Hg] [facility] Height 2020-05-07 00:00:00 63 [in_i] [facility] BMI (Body Mass 2020-05-07 00:00:00 27.1 kg/m2 [facility]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) Group BP Systolic 2020-05-07 00:00:00 139 mm[Hg] [facility] Body Weight 2020-05-07 00:00:00 153 [lb_av] [facility] BP Diastolic 2020-04-27 00:00:00 84 mm[Hg] [facility] Height 2020-04-27 00:00:00 63 [in_i] [facility] BMI (Body Mass 2020-04-27 00:00:00 26.6 kg/m2 [facility]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) Group BP Systolic 2020-04-27 00:00:00 129 mm[Hg] [facility] Body Weight 2020-04-27 00:00:00 149.9 [lb_av] [facility] Procedures Procedure Date / Time Performed Performing Clinician Sourc e POCT MOLECULAR STREP 2022-02-19 00:16:00 Nadira Wharton [facility] US, transvaginal 2020-04-27 00:00:00 Laura Bender edical Group Hysterectomy 2012-08-07 00:00:00 Laura yadav Group Plan of Care Planned Activity Planned Date Details Comments Source Future Scheduled 2022-05-20 COVID-19 VACCINE [facility] Test 14:43:56 (#1) [code = COVID-19 VACCINE (#1)] Future Scheduled 2022-05-20 Screening for [facility] Test 14:43:56 malignant neoplasm of cervix (procedure) [code = 839096070] Future Scheduled 2022-05-20 BREAST CANCER [facility] Test 14:43:56 SCREENING [code = BREAST CANCER SCREENING] Future Scheduled 2022-05-20 INFLUENZA VACCINE Method [facility] Test 14:43:56 [code = INFLUENZA VACCINE] Encounters Start End Encounter Admission Attending Care Care Encounter Source Date/Time Date/Time Type Type Clinicians Facility Department ID 2022-02-18 2022-02-18 Outpatient R JAIR [facility] [id number] Univers 19:20:00 20:06:55 [facility] 2022-02-18 2022-02-18 Urgent Jair [facility] [id number] Univers 19:20:00 19:40:00 Care [facility] [id number] it y [facility] [id number] Ashutosh as ISAIAS?BLEA [id number] [place] dical [address] MEDICAL OFFICE BUILDING 2020-08-05 2020-08-05 Outpatient G_Pappas [facility] [id number] [place] 11:02:00 11:02:00 [id number] Medical Group 2020-05-07 2020-05-07 Outpatient G_Pappas [facility] [id number] [place] 04:31:00 04:31:00 1204 Medical Group 2020-05-07 2020-05-07 [place] [facility] [place] - [id number] [facility] 00:00:00 00:00:00 Discovery macrina Edwards MD: [address] [place] [id number] , Ph. [phone] 2020-05-03 2020-05-03 Outpatient G_Pappas MMG MM [id number] [place] 01:20:00 01:20:00 [id number] Medical Group 2020-04-27 2020-04-27 Outpatient G_Pappas MMG MMG [id number] [place] 04:34:00 04:34:00 1124 [facility] Group 2020-04-27 2020-04-27 [place] [facility] [place] - [id number] [place] 00:00:00 00:00:00 Discovery macrina Edwards MD: [address] [place] [phone] , Ph. [phone] 2020-04-14 2020-04-14 Outpatient G_Pappas [facility] [id number] [place] 03:06:00 03:06:00 1111 Medical Group Results Test Description Test Time Test Comments Results Result Comments Source POCT MOLECULAR STREP 2022-02-19 00:24:32 Test Item Value Reference Range Interpretation Comme nts POCT Molecular Strep (test code = 43395-2) Negative Negative Lab Interpretation (test code = 34084-5) [facility] BranchUrinalysis macro (dipstick) panel - Urine 2020-04-27 15:09:52 Test Item Value Reference Range Interpretation Comments Leukocytes (test code = Negative Leukocytes) Nitrite (test code = negative Nitrite) Urobilinogen (test code = .2 Urobilinogen) Protein (test code = Negative Protein) pH (test code = pH) 6.0 Blood (test code = Blood) Non-Hemolyzed: Trace Specific [place] (test 1.025 code = Specific [place]) Ketone (test code = Negative Ketone) Bilirubin (test code = Negative Bilirubin) Glucose (test code = Negative Glucose) Appearance (test code = Clear Appearance) Color (test code = Color) Yellow [facility]stick) panel - [id number] 15:09:52 Test Item Value Reference Range Interpretation Comments Leukocytes (test code = Negative Leukocytes) Nitrite (test code = negative Nitrite) Urobilinogen (test code = .2 Urobilinogen) Protein (test code = Negative Protein) pH (test code = pH) 6.0 Blood (test code = Blood) Non-Hemolyzed: Trace Specific [place] (test 1.025 code = Specific [place]) Ketone (test code = Negative Ketone) Bilirubin (test code = Negative Bilirubin) Glucose (test code = Negative Glucose) Appearance (test code = Clear Appearance) Color (test code = Color) Yellow [facility] [Units/volume] in Serum or [id number] 03:15:00 Test Item Value Reference Range Interpretation Comments Thyrotropin [Units/volume] in 0.91 uIU/mL 0.36-3.74 Serum or Plasma (test code = 3016-3) [facility]
--- NOTE | 2022-07-12 16:47 | RAD REPORT ---
EXAM DESCRIPTION: RAD - Chest Single View - 07/12/2022 4:37 pm CLINICAL HISTORY: CHEST PAIN Chest pain. COMPARISON: Chest Single View dated 12/26/2017 FINDINGS: Portable technique limits examination quality. The lungs are grossly clear. The heart is mildly enlarged in size. No displaced fractures.
[2022-07-12 17:10] LABS: Absolute Lymphocytes (CBC) 2.8 K/uL (0.7-4.9); Lymphocytes % 26.2 % (15.3-44.8); MCV 78.9 fL (80-100); RBC Red Blood Cell Count 5.95 M/uL (3.86-4.86)
[2022-07-12 17:16] LABS: Anisocytosis 2+; Blood Morphology Comment NOTED (NOT SEEN); Platelet Estimate ADEQ; White Blood Cell Scan OK (OK)
[2022-07-12 17:20] LABS: Potassium 4.5 mmol/L (3.5-5.1)
[2022-07-12 17:23] LABS: Troponin High Sensitivity 65.5 pg/mL (<58.9)
--- NOTE | 2022-07-12 18:22 | RAD REPORT ---
EXAM DESCRIPTION: CT - Chest For Pe Angio - 07/12/2022 6:11 pm CLINICAL HISTORY: Chest pain. CHEST PAIN COMPARISON: No comparisons TECHNIQUE: CT angiogram of the pulmonary arteries was performed with MIP. All CT scans are performed using dose optimization technique as appropriate and may include automated exposure control or mA/KV adjustment according to patient size. FINDINGS: No evidence of pulmonary thromboembolism. Thoracic aorta is suboptimally contrast enhanced. Cardiac size is mildly enlarged. Subtle nonspecific ground-glass opacities are seen in both upper lobes. No significant pericardial or pleural fluid. No concerning bony finding. IMPRESSION: No evidence of pulmonary thromboembolism. Subtle ground-glass opacities in the upper lobes are nonspecific and may be related to alveolitis. Re commend follow-up CT chest in 3-6 months to monitor.
--- NOTE | 2022-07-12 18:32 | EDPHYS ---
Physician Documentation [facility] Name: Cira Nixon Age: 42 yrs Sex: Female : 1980 Arrival Date: 07/12/2022 Time: 16:11 Bed 18 Private MD: ED Physician Colby Goldberg HPI: 07/12 16:35 This 42 yrs old Female presents to ER via Ambulatory with complaints of Chest Pain, ms3 Shortness Of Breath. 16:35 42-year-old female with past medical history of hypertension, hyperlipidemia, seizure ms3 disorder, myocardial infarction presents for shortness of breath and left-sided chest pain. Patient states her pain is a 3/10 described as aching. Patient states the pain awoke her this morning. Patient states she took 324 mg baby aspirin this morning. Patient states after discharge from this facility she followed up at [facility] and was started on medications. Patient states she stopped her medications during COVID.. Historical: - Allergies: 16:16 Morphine; aa5 16:16 PENICILLINS; aa5 - PMHx: 16:16 chronic neck pain; Seizure Disorder; IN; aa5 - Immunization history:: Adult Immunizations unknown. - Social history:: Smoking status: unknown. ROS: 16:35 Constitutional: Negative for fever, and chills. Neck: Negative for injury, pain, and ms3 swelling, Respiratory: Negative for shortness of breath, cough, wheezing, and pleuritic chest pain, Abdomen/GI: Negative for abdominal pain, nausea, vomiting, diarrhea, and constipation. 16:35 MS/Extremity: Negative for injury and deformity, Skin: Negative for injury, rash, and discoloration. 16:35 Cardiovascular: Positive for chest pain. 16:35 Respiratory: Positive for shortness of breath. 16:35 All other systems are negative. Exam: 16:35 Constitutional: This is a well developed, well nourished patient who is awake, alert, ms3 and in no acute distress. Head/Face: Normocephalic, atraumatic. Neck: Trachea midline, no cervical lymphadenopathy. Supple, full range of motion without nuchal rigidity, or vertebral point tenderness. No Meningismus. Chest/axilla: Normal chest wall appearance and motion. Nontender with no deformity. Cardiovascular: Regular rate and rhythm with a normal S1 and S2. No gallops, murmurs, or rubs. Normal PMI, no JVD. No pulse deficits. Respiratory: Lungs have equal breath sounds bilaterally, clear to auscultation and percussion. No rales, rhonchi or wheezes noted. No increased work of breathing, no retractions or nasal flaring. Abdomen/GI: Soft, non-tender, with normal bowel sounds. No distension or tympany. No guarding or rebound. No evidence of tenderness throughout. Skin: Warm, dry with normal turgor. Normal color with no rashes, no lesions, and no evidence of cellulitis. MS/ Extremity: Pulses equal, no cyanosis. Neurovascular intact. Full, normal range of motion. 17:30 ECG was reviewed by the Attending Physician. ms3 Vital Signs: 16:15 BP 123 / 90; Pulse 110; Resp 20 S; Temp 98.5(TE); Pulse Ox 99% on R/A; aa5 16:56 BP 109 / 80; Pulse 109; Resp 22; Temp 98(O); Pulse Ox 99% on R/A; Weight 64.41 kg; zm Height 5 ft. 8 in. (172.72 cm); 19:25 BP 119 / 84; Pulse 109; Resp 21 S; Pulse Ox 94% on R/A; aa9 22:00 BP 115 / 81; Pulse 110; Resp 18; Pulse Ox 98% on R/A; aa9 16:56 Body Mass Index 21.59 (64.41 kg, 172.72 cm) zm MDM: 16:21 Patient medically screened. ms3 16:35 External Records Reviewed: Inpatient record: From discharge summary on December 27, 2017 ms3 and patient's heart cath during that hospitalization showed small vessel disease with distal LAD stenosis.. 16:35 Differential diagnosis: abnormal EKG, acute myocardial infarction, coronary artery ms3 disease. The patient was not given aspirin in the Emergency Department. Patient reports taking aspirin within the past 24 hours. 17:29 Management of patient was discussed with the following: Reconciliation Accountant: Dr Le- Would ms3 like patient to be placed on Heparin ggt after review of EKG. Patient to be NPO after midnight.. 19:22 HEART Score: History: Moderately Suspicious (1), ECG: Significant ST-deviation (2), ms3 Age: < or = 45 years (0), Risk Factors: > or = 3 Risk factors for atherosclerotic disease (2), Troponin: > 1 and < 3 x normal limit (1), Total Score = 6. Data reviewed: vital signs, nurses notes, lab test result(s), EKG, radiologic studies, and as a result, I will discharge patient. 19:23 I considered the following discharge prescriptions or medication management in the [facility] emergency department Medications were administered in the Emergency Department. See MAR. Independent interpretation of the following test(s) in the Emergency Department EKG: See my EKG interpretation above X-Ray: My interpretation is Chest x-ray image reviewed, no pneumothorax, no pneumonia. Counseling: I had a detailed discussion with the patient and/or guardian regarding: the historical points, exam findings, and any diagnostic results supporting the discharge/admit diagnosis, lab results, radiology results, the need for further work-up and treatment in the hospital. ED course: Discussed necessity for admission with patient. Case discussed with RAMIREZ Lopez and she accepts patient on behalf of Dr. Kiran. All questions were answered.. 07/12 16:20 Order name: Basic Metabolic Panel; Complete Time: 17:25 ms3 07/12 16:20 Order name: CBC with Diff; Complete Time: 17:25 ms3 07/12 16:20 Order name: Magnesium; Complete Time: 17:25 ms3 07/12 16:20 Order name: Troponin HS; Complete Time: 17:25 ms3 07/12 16:21 Order name: D-Dimer; Complete Time: 17:31 ms3 07/12 17:16 Order name: CBC Smear Scan; Complete Time: 17:25 EDMS 07/12 16:20 Order name: XRAY Chest (1 view); Complete Time: 17:04 ms3 07/12 17:31 Order name: CT Chest For PE Angio; Complete Time: 18:28 ms3 07/12 17:41 Order name: Ptt, Activated; Complete Time: 18:28 kr3 07/12 19:01 Order name: COVID-19/FLU A+B sb4 07/12 19:58 Order name: COVID-19/FLU A+B; Complete Time: 20:17 EDMS 07/12 20:06 Order name: Abdomen 1 View (KUB) XRAY lila 07/12 20:41 Order name: RAD; Complete Time: 01:32 EDMS 07/12 16:20 Order name: EKG; Complete Time: 16:21 ms3 07/12 16:20 Order name: Cardiac monitoring; Complete Time: 16:51 ms3 07/12 16:20 Order name: EKG - Nurse/Tech; Complete Time: 16:30 ms3 07/12 16:20 Order name: IV Saline Lock; Complete Time: 16:51 ms3 07/12 16:20 Order name: Labs collected and sent; Complete Time: 16:51 ms3 07/12 16:20 Order name: O2 Per Protocol; Complete Time: 16:57 ms3 07/12 16:20 Order name: O2 Sat Monitoring; Complete Time: 16:57 ms3 EC:30 Rate is 110 beats/min. Rhythm is regular. QRS [place] is Normal. [place] interval is normal. ms3 QRS interval is normal. Clinical impression: Sinus tachycardia with lateral ST depression. Interpreted by me. Reviewed by me. Administered Medications: 18:45 Drug: Heparin (IN-Bolus No thrombolytic) - HEParin 60 units/kg {Co-Signature: vg1 kr3 (Gabriela Best RN).} Route: IVP; Site: right antecubital; 19:00 Drug: Heparin (IN Drip) 12 units/kg/hr - (HEParin 62866 units, D5W 500 ml) kr3 {Co-Signature: vg1 (Gabriela Best RN).} Route: IV; Rate: calculated rate; Site: right antecubital; 23:11 Follow up: Response: No adverse reaction; IV Status: Infusion continued upon admission aa9 Disposition: 19:23 Critical Care:. ms3 Disposition Summary: 07/12/22 18:31 Hospitalization Ordered Hospitalization Status: Inpatient Admission ms3 Provider: Won Kiran ms3 Location: Telemetry/MedSur (Inpatient) ms3 Condition: Stable ms3 Problem: new ms3 Symptoms: are unchanged ms3 Bed/Room Type: Standard ms3 Room Assignment: 219(07/12/22 21:36) Diagnosis - Subsequent non-ST elevation (NSTEMI) myocardial infarction ms3 - Chest pain, unspecified ms3 Forms: - Medication Reconciliation Form ms3 - SBAR form ms3 Critical care time excluding procedures: 19:23 Critical care time: Bedside Care: 35 minutes, Consultation: 10 minutes. Total time: 45 ms3 minutes Signatures: Dispatcher [employer] EDGriselda Negro, RN RN aa5 Wanda Best RN RN cg Colby Goldberg, DO ACOSTA ms3 Justina Camacho, RN RN aa9 Elenita Melendrez RN RN kr3 Blossom Mckeon, PAAshlyn PAAshlyn sb4 Gabriela Best RN vg1 Corrections: (The following items were deleted from the chart) 21:36 18:31 ms3 cg
--- NOTE | 2022-07-12 18:32 | ER ---
Nurse's Notes [facility] Name: Cira Nixon Age: 42 yrs Sex: Female : 1980 Arrival Date: 07/12/2022 Time: 16:11 Bed 18 Private MD: Diagnosis: Subsequent non-ST elevation (NSTEMI) myocardial infarction;Chest pain, unspecified Presentation: 07/12 16:15 Chief complaint: Patient states: chest pain and SOB that began this morning. Reports hx aa5 of MD, reports non compliant with home medications since 2019. Coronavirus screen: shortness of breath. Ebola Screen: Patient denies travel to an Ebola-affected area in the 21 days before illness onset. Initial Sepsis Screen: Does the patient meet any 2 criteria? HR > 90 bpm. Does the patient have a suspected source of infection? No. Patient's initial sepsis screen is negative. Risk Assessment: Do you want to hurt yourself or someone else? Patient reports no desire to harm self or others. Onset of symptoms was July 2022. 16:15 Method Of Arrival: Ambulatory aa5 16:15 Acuity: ALEKSANDR 2 aa5 Triage Assessment: 22:40 General: Appears in no apparent distress. comfortable, Behavior is cooperative, aa9 anxious. Pain: Denies pain. Historical: - Allergies: 16:16 Morphine; aa5 16:16 PENICILLINS; aa5 - PMHx: 16:16 chronic neck pain; Seizure Disorder; MD; aa5 - Immunization history:: Adult Immunizations unknown. - Social history:: Smoking status: unknown. Screenin:18 Abuse screen: Denies threats or abuse. Denies injuries from another. Nutritional aa9 screening: No deficits noted. Tuberculosis screening: No symptoms or risk factors identified. 23:10 [facility] ED Fall Risk Assessment (Adult) History of falling in the last 3 months, aa9 including since admission No falls in past 3 months (0 pts) Confusion or Disorientation No (0 pts) Intoxicated or Sedated No (0 pts) Impaired Gait No (0 pts) Mobility Assist Device Used No (0 pt) Altered Elimination No (0 pt) Score/Fall Risk Level 0 - 2 = Low Risk Oriented to surroundings, Maintained a safe environment. Assessment: 19:17 Reassessment: Patient appears in no apparent distress at this time. Patient is alert, aa9 oriented x 3, equal unlabored respirations, skin warm/dry/pink. Patient denies pain at this time. Pain: Denies pain. Cardiovascular: Patient's skin is warm and dry. Rhythm is sinus tachycardia. Respiratory: Airway is patent Respiratory effort is even, unlabored. GI: No signs and/or symptoms were reported involving the gastrointestinal system. Derm: Skin is intact, is healthy with good turgor. 20:31 Reassessment: Patient appears in no apparent distress at this time. pr requested to aa9 take [facility] Meme GUZMÁN approved. Vital Signs: 16:15 BP 123 / 90; Pulse 110; Resp 20 S; Temp 98.5(TE); Pulse Ox 99% on R/A; aa5 16:56 BP 109 / 80; Pulse 109; Resp 22; Temp 98(O); Pulse Ox 99% on R/A; Weight 64.41 kg; zm Height 5 ft. 8 in. (172.72 cm); 19:25 BP 119 / 84; Pulse 109; Resp 21 S; Pulse Ox 94% on R/A; aa9 22:00 BP 115 / 81; Pulse 110; Resp 18; Pulse Ox 98% on R/A; aa9 16:56 Body Mass Index 21.59 (64.41 kg, 172.72 cm) ED Course: 16:11 Patient arrived in ED. am2 16:12 Colby Goldberg DO is Attending Physician. ms3 16:15 Arm band placed on. aa5 16:16 Triage completed. aa5 16:25 EKG completed in triage. Results shown to MD. aa5 16:38 XRAY Chest (1 view) In Process Unspecified. EDMS 16:51 Inserted saline lock: 20 gauge in right antecubital area, using aseptic technique. Blood collected. 16:51 D-Dimer Sent. zm 16:51 Basic Metabolic Panel Sent. zm 16:51 CBC with Diff Sent. zm 16:51 Magnesium Sent. zm 16:51 Troponin HS Sent. zm 17:33 Elenita Melendrez, RN is Primary Nurse. kr3 17:51 Ptt, Activated Sent. kr3 18:13 CT Chest For PE Angio In Process Unspecified. EDMS 18:31 Won Kiran is Hospitalizing Provider. ms3 18:54 Inserted saline lock: 20 gauge in left forearm, using aseptic technique. jl7 19:17 COVID-19/FLU A+B Sent. aa9 23:10 Patient has correct armband on for positive identification. Bed in low position. Call aa9 light in reach. Side rails up X2. Client placed on continuous cardiac and pulse oximetry monitoring. NIBP monitoring applied. 23:10 No provider procedures requiring assistance completed. Patient admitted, IV remains in aa9 place. Patient maintains SpO2 saturation greater than 95% on room air. Administered Medications: 18:45 Drug: Heparin (MD-Bolus No thrombolytic) - HEParin 60 units/kg {Co-Signature: vg1 kr3 (Gabriela Best RN).} Route: IVP; Site: right antecubital; 19:00 Drug: Heparin (MD Drip) 12 units/kg/hr - (HEParin 02379 units, D5W 500 ml) kr3 {Co-Signature: vg1 (Gabriela Best RN).} Route: IV; Rate: calculated rate; Site: right antecubital; 23:11 Follow up: Response: No adverse reaction; IV Status: Infusion continued upon admission aa9 Medication: 23:10 VIS not applicable for this client. aa9 Outcome: 18:31 Decision to Hospitalize by Provider. ms3 22:54 Patient left the ED. aa9 23:10 Admitted to Med/surg accompanied by tech, via wheelchair, with chart, Report called to aa9 Dayan HERNANDEZ 23:10 Condition: stable 23:10 Instructed on the need for admit. Signatures: Dispatcher [employer] EDMS Griselda Pina, RN RN aa5 Geneva Prabhakar, RN RN jl7 Marisela Wade Marcus, DO DO ms3 Leonie Pandya Aylin, RN RN aa9 Elenita Melendrez, DAVID RN kr3 Gabriela Best RN vg1
[2022-07-12] MEDS ORDERED: HEPARIN 5000 UNIT/ML 1 ML VIAL ONE (18:49)
[2022-07-12] MEDS ORDERED: HEPARIN/D5W 25,000 UNIT/500 ML BAG IV ONE (18:50)
[2022-07-12 19:58] LABS: SARS-COV-2 RT PCR NEGATIVE (NEGATIVE)
[2022-07-12] MEDS ORDERED: HEPARIN/D5W 25,000 UNIT/500 ML BAG IV SCH (20:35)
--- NOTE | 2022-07-12 20:40 | RAD REPORT ---
EXAM DESCRIPTION: RAD - Abdomen 1 View (KUB) - 07/12/2022 8:32 pm CLINICAL HISTORY: ABDOMINAL DISTENTION Pain COMPARISON: <Comparisons> FINDINGS: The bowel gas pattern is non-obstructive. No evidence of free air or pneumatosis. No suspi cious calcifications. No significant bony findings. Contrast is present in the system. Moderate fecal retention. IMPRESSION: Moderate fecal retention.
--- NOTE | 2022-07-12 21:20 | P.HP ---
Certification for Inpatient Patient admitted to: Inpatient With expected LOS: <2 Midnights Patient will require the following post-hospital care: None Practitioner: I am a practitioner with admitting privileges, knowledge of patient current condition, hospital course, and medical plan of care. Services: Services provided to patient in accordance with Admission requirements found in Title 42 Section 412.3 of the Code of Federal Regulations Patient History Date of Service: 07/13/22 Reason for admission: NSTEMI History of Present Illness: Patient is a 42-year-old female with past medical history of seizures, hyperlipidemia, hypertension, and coronary artery disease who presented to the emergency department with complaints of chest pain and shortness of breath that woke her this morning. 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 EKG showed sinus tachycardia with lateral ST depression. Her troponin was elevated at 65. Dr. Le was contacted and recommended heparin drip. Other labs are significant for BUN 28, creatinine 1.17, D-dimer 2616. Chest CTA showed "no evidence of pulmonary thromboembolism. Subtle groundglass opacities in the upper lobes are nonspecific and may be related to alveolitis." Patient is admitted for further management. Allergies morphine Allergy (Verified 07/13/22 00:57) Anaphylaxis Penicillins Allergy (Verified 07/13/22 00:57) Hives/Rash Home medications list reviewed: Yes Home Medications: Nitroglycerin 0.4 mg SL SEECOM PRN #30 tab.subl 12/27/17 Magnesium Oxide [Magnesium] 500 mg PO DAILY 07/13/22 Niacin 600 mg PO BEDTIME 07/13/22 Potassium Chloride 10 meq PO DAILY 07/13/22 Zinc Gluconate [Zinc] 50 mg PO DAILY 07/13/22 - Past Medical/Surgical History Diabetic: No -: Hyperlipidemia -: Chronic neck pain -: Tobacco abuse -: Seizure disorder -: CAD -: Hypertension -: Hysterectomy -: Right foot surgery Psychosocial/ Personal History: Patient is . She has 2 children. - Family History Father -: Heart disease, Hypertension Mother -: Heart disease Notes: Leaky arotic valve - Social History Smoking Status: Light Tobacco smoker (1-9 cigarettes/day) Alcohol use: No CD- Drugs: No Caffeine use: Yes Place of Residence: Home Review of Systems Respiratory: Shortness of Breath Cardiovascular: Chest Pain Physical Examination - Vital Signs Temperature: 98 F Blood Pressure: 119/84 Pulse: 109 Respirations: 21 Pulse Ox (%): 94 - Physical Exam General: Alert, In no apparent distress HEENT: Atraumatic, EOMI, Sclerae nonicteric Neck: Supple, 2+ carotid pulse no bruit Respiratory: Clear to auscultation bilaterally, Normal air movement Cardiovascular: Regular rate/rhythm, Normal S1 S2 Gastrointestinal: Normal bowel sounds, No tenderness Musculoskeletal: No tenderness Integumentary: No rashes Neurological: Normal speech, Normal affect - Studies Laboratory Data (last 24 hrs) 07/12/22 17:46: APTT 29.5 07/12/22 16:45: WBC 10.80, Hgb 15.2 H, Hct 47.0 H, Plt Count 290 07/12/22 16:45: Sodium 136, Potassium 4.5, BUN 28 H, Creatinine 1.17 H, Glucose 92, Magnesium 2.0 Assessment and Plan - Problems (Diagnosis) (1) NSTEMI (non-ST elevated myocardial infarction) Current Visit: Yes Status: Acute (2) CAD (coronary artery disease) Current Visit: Yes Status: Chronic Qualifiers: Coronary Disease-Associated Artery/Lesion type: seminole artery [place] vs. transplanted heart: seminole heart Associated angina: with unstable angina Qualified Code(s): I25.110 - Atherosclerotic heart disease of seminole coronary artery with unstable angina pectoris (3) Hyperlipidemia Current Visit: Yes Status: Chronic Qualifiers: Hyperlipidemia type: unspecified Qualified Code(s): E78.5 - Hyperlipidemia, unspecified (4) Hypertension Current Visit: Yes Status: Chronic Qualifiers: Hypertension type: primary hypertension Qualified Code(s): I10 - Essential (primary) hypertension (5) Seizure disorder Current Visit: Yes Status: Chronic (6) Tobacco abuse Current Visit: Yes Status: Chronic - Plan Patient is admitted for further management of NSTEMI. Cardiac cath in 2018 showed small vessel disease with distal LAD stenosis, no stents placed. Cardiology consult. Monitor on telemetry. Troponin trend 65.5 -> 61.4. SL nitro PRN chest pain. Continue heparin drip & IV hydration. NPO at midnight. Check lipid panel and TSH. Aspirin and atorvastatin daily. Tobacco cessation counseling. Discharge Plan: Home Plan to discharge in: 48 Hours - Advance Directives Does patient have a Living Will: No Does patient have a Durable POA for Healthcare: No - Code Status/Comfort Care Code Status Assessed: Yes Code Status: Full Code Physician Review: Patient Assessed, Agree with Above Assessment and Plan Critical Care: No Time Spent Managing Pts Care (In Minutes): 50
[2022-07-12] MEDS ORDERED: NITROGLYCERIN 0.4 MG/TAB SL PRN (22:39)
[2022-07-12] MEDS ORDERED: ACETAMINOPHEN 500 MG TAB PO ONE (22:39)
[2022-07-12 23:11] VITALS: BMI 21.0
[2022-07-12] MEDS ORDERED: MELATONIN 5 MG TABLET PO PRN (23:27)
[2022-07-12] MEDS: ATORVASTATIN 40 MG TAB PO SCH (23:35)
[2022-07-13] MEDS: NA CHLORIDE 0.9% 1,000 ML IV SCH ×3 (03:08→22:00)
[2022-07-13 03:43] LABS: RBC Red Blood Cell Count 5.39 M/uL (3.86-4.86)
[2022-07-13 03:44] LABS: Absolute Lymphocytes (CBC) 3.1 K/uL (0.7-4.9); Hematocrit 42.9 % (36.0-45.0); Lymphocytes % 31.1 % (15.3-44.8); MCV 79.6 fL (80-100); MPV 8.8 fL (7.6-11.3)
[2022-07-13 04:05] LABS: Magnesium 1.9 mg/dL (1.6-2.4); Phosphorus 4.5 mg/dL (2.5-4.9); Thyroid Stimulating Hormone 3.04 uIU/mL (0.358-3.740); Troponin High Sensitivity 57.9 pg/mL (<58.9)
[2022-07-13] MEDS: ACETAMINOPHEN 325 MG TABLET PO PRN ×2 (06:51→20:40)
--- NOTE | 2022-07-13 07:55 | EKG ---
Test Date: 2022-07-12 Test Time: 16:24:35 Engineer Operations And Maintenance: FABIANA MEASUREMENT RESULTS: Intervals: Rate: 112 ME: 146 QRSD: 94 QT: 348 QTc: 475 Mullan: P: 75 ME: 146 QRS: 24 T: 225 INTERPRETIVE STATEMENTS: Sinus tachycardia Biatrial enlargement T wave abnormality, consider inferolateral ischemia Abnormal ECG Compared to ECG 12/26/2017 09:10:21 Atrial abnormality now present Sinus rhythm no longer present Left ventricular hypertrophy no longer present Prolonged QT interval no longer present T-wave abnormality still present Possible ischemia still present Electronically Signed On 07-13-22 07:54:02 FILLING MACHINE TENDER by Darwin Le
[2022-07-13] MEDS: ASPIRIN EC 81 MG TAB PO SCH (09:00)
[2022-07-13] MEDS ORDERED: HEPA 1000U/500MLS 2,000 UNIT/1,000 ML BAG IV ONE (13:42)
[2022-07-13] MEDS ORDERED: METHYLPREDNISOLONE 125 MG INJ ONE (14:05)
[2022-07-13] MEDS ORDERED: DIPHENHYDRAMINE 50 MG/ML VIAL ONE (14:05)
[2022-07-13] MEDS ORDERED: HEPARIN 5000 UNIT/ML 1 ML VIAL ONE (16:22)
[2022-07-13] MEDS ORDERED: MIDAZOLAM HCL 2 MG/2 ML INJ ONE ×2 (16:22→17:19)
[2022-07-13] MEDS ORDERED: FENTANYL CITR 100 MCG/2 ML ONE (16:22)
[2022-07-13] MEDS ORDERED: VERAPAMIL HCL 10 MG/4 ML VIAL IV ONE (16:22)
[2022-07-13] MEDS ORDERED: ATROPINE SULF 1 MG/10 ML SYR IV ONE (16:23)
[2022-07-13] MEDS ORDERED: CLOPIDOGREL 75 MG TABLET ONE (16:23)
[2022-07-13] MEDS ORDERED: HEPARIN 10,000 UNIT/10 ML VIAL IV ONE (16:23)
[2022-07-13] MEDS ORDERED: TICAGRELOR 90 MG TABLET PO ONE (16:23)
[2022-07-13] MEDS ORDERED: ASPIRIN 325 MG TAB ONE (16:23)
[2022-07-13] MEDS ORDERED: METOPROLOL TARTRATE 5 MG/5 ML INJ IV ONE (17:24)
[2022-07-13] MEDS ORDERED: REGADENOSON 0.4 MG/5 ML SYR IV ONE ×2 (17:29→17:37)
--- NOTE | 2022-07-13 18:17 | P.PN ---
Subjective Date of Service: 07/13/22 Chief Complaint: NSTEMI Patient denies any chest pain today. She has been hypertensive today. Physical Examination - Vital Signs Temperature: 97.7 F Blood Pressure: 142/107 Pulse: 93 Respirations: 15 Pulse Ox (%): 98 Assessment And Plan - Current Problems (Diagnosis) (1) NSTEMI (non-ST elevated myocardial infarction) Current Visit: Yes Status: Acute (2) CAD (coronary artery disease) Current Visit: Yes Status: Chronic Qualifiers: Coronary Disease-Associated Artery/Lesion type: pala artery [place] vs. transplanted heart: pala heart Associated angina: with unstable angina Qualified Code(s): I25.110 - Atherosclerotic heart disease of pala coronary artery with unstable angina pectoris (3) Hyperlipidemia Current Visit: Yes Status: Chronic Qualifiers: Hyperlipidemia type: unspecified Qualified Code(s): E78.5 - Hyperlipidemia, unspecified (4) Hypertension Current Visit: Yes Status: Chronic Qualifiers: Hypertension type: primary hypertension Qualified Code(s): I10 - Essential (primary) hypertension (5) Tobacco abuse Current Visit: Yes Status: Chronic (6) Chest pain Onset Date: 12/27/17 Current Visit: No Status: Acute Qualifiers: Chest pain type: unspecified Qualified Code(s): R07.9 - Chest pain, unspecified - Plan Physical Exam General: Alert, NAD Neck: Supple, 2+ carotid pulse no bruit Respiratory: Clear to auscultation bilaterally, Normal air movement Cardiovascular: Regular rate/rhythm, Normal S1 S2 Gastrointestinal: Normal bowel sounds, No tenderness Musculoskeletal: No tenderness Integumentary: No rashes Neurological: No focal motor deficit. Plan: Troponin trended flat. Patient started on heparin drip for NSTEMI/unstable angina. Seen by cardiology Dr. Le and planned for cardiac cath today. Metoprolol for CAD and BP control. Echocardiogram done. Follow-up result. Cardiology to follow Physician Review: Patient Assessed, Agree with Above Assessment and Plan
[2022-07-13] MEDS: METOPROLOL TAR 25 MG TAB PO SCH (20:42)
[2022-07-13] MEDS: ATORVASTATIN 40 MG TAB PO SCH (20:42)
[2022-07-13] MEDS: NIACIN 100 MG PO SCH (20:46)
[2022-07-13] MEDS ORDERED: TRAMADOL HCL 50 MG TAB PO ONE (22:56)
[2022-07-13] MEDS ORDERED: CYCLOBENZAPRINE 10 MG TAB PO ONE (22:56)
[2022-07-14 05:51] LABS: Absolute Lymphocytes (CBC) 2.3 K/uL (0.7-4.9); Hematocrit 46.6 % (36.0-45.0); Lymphocytes % 16.6 % (15.3-44.8); MCV 79.7 fL (80-100); MPV 9.1 fL (7.6-11.3); RBC Red Blood Cell Count 5.85 M/uL (3.86-4.86)
[2022-07-14 06:02] LABS: Potassium 5.5 mmol/L (3.5-5.1)
--- NOTE | 2022-07-14 06:37 | ECHO ---
HEIGHT: 5 ft 8 in WEIGHT: 138 lb 9.6 oz DATE OF STUDY: 07/13/[address]: Blossom Mckeon 2-DIMENSIONAL: YES M.MODE: YES DOPPLER: YES COLOR FLOW: YES TDS: PORTABLE: YES DEFINITY: BUBBLE STUDY: DIAGNOSIS: NON ST ELEVATION MYOCARDIAL INFARCTION CARDIAC HISTORY: CATHERIZATION: YES SURGERY: NO PROSTHETIC VALVE: NO PACEMAKER: NO MEASUREMENTS (cm) DIASTOLIC (NORMALS) SYSTOLIC (NORMALS) IVSd 1.1 (0.6-1.2) LA Diam 4.2 (1.9-4.0) LVEF 20-25% LVIDd 5.4 (3.5-5.7) LVIDs 5.2 (2.0-3.5) %FS 3% LVPWd 1.2 (0.6-1.2) Ao Diam 2.5 (2.0-3.7) 2 DIMENSIONAL ASSESSMENT: RIGHT ATRIUM: NORMAL LEFT ATRIUM: ENLARGED RIGHT VENTRICLE: NORMAL LEFT VENTRICLE: DILATED LEFT VENTRICLE TRICUSPID VALVE: MODERATE TRICUSPID REGURGITATION MITRAL VALVE: MODERATE MITRAL REGURGITATION PULMONIC VALVE: MILD PULMONIC INSUFFICIENCY AORTIC VALVE: MILD AORTIC INSUFFICIENCY PERICARDIAL EFFUSION: NONE AORTIC ROOT: NORMAL LEFT VENTRICULAR WALL MOTION: MODERATE GLOBAL HYPOKINESIS AND ANTERIOR/ APICAL WALL AREA AKINETIC DOPPLER/COLOR FLOW: SEE BELOW COMMENTS: 1. SEVERELY DEPRESSED LEFT VENTRICULAR EJECTION FRACTION 20-25% 2. WALL MOTION ABNORMALITIES ABPVE 3. LEFT ATRIAL ENLARGEMENT 4. MODERATE TRICUSPID REGURGITATION 5. MODERATE MITRAL REGURGITATION 6. MILD AORTIC INSUFFICIENCY, PULMONIC INSUFFICIENCY 7. SEVERE PULMONARY HYPERTENSION 8. QUESTIONABLE LEFT VENTRICLE. APICAL SMALL THROMBUS TECHNOLOGIST: ROLO MARTÍNEZ
[2022-07-14] MEDS: HOME MED 1 EA UNK (Magnesium Oxide [Magnesium] 500 MG Capsule) PO SCH (09:00)
[2022-07-14] MEDS: METOPROLOL TAR 25 MG TAB PO SCH ×2 (09:12→20:30)
[2022-07-14] MEDS: NA CHLORIDE 0.9% 1,000 ML IV SCH ×2 (09:12→18:00)
[2022-07-14] MEDS: ASPIRIN EC 81 MG TAB PO SCH (09:12)
[2022-07-14] MEDS: ACETAMINOPHEN 325 MG TABLET PO PRN (09:15)
--- NOTE | 2022-07-14 13:37 | P.PN ---
Subjective Date of Service: 07/14/22 Chief Complaint: NSTEMI Patient has no new complaint. She denies any chest pain. Physical Examination - Vital Signs Temperature: 98.6 F Blood Pressure: 127/89 Pulse: 91 Respirations: 16 Pulse Ox (%): 100 Assessment And Plan - Current Problems (Diagnosis) (1) Chest pain Onset Date: 12/27/17 Current Visit: No Status: Acute Qualifiers: Chest pain type: unspecified Qualified Code(s): R07.9 - Chest pain, unspecified (2) NSTEMI (non-ST elevated myocardial infarction) Current Visit: Yes Status: Acute (3) CAD (coronary artery disease) Current Visit: Yes Status: Chronic Qualifiers: Coronary Disease-Associated Artery/Lesion type: [place] artery [place] vs. transplanted heart: [place] heart Associated angina: with unstable angina Qualified Code(s): I25.110 - Atherosclerotic heart disease of [place] coronary artery with unstable angina pectoris (4) Hyperlipidemia Current Visit: Yes Status: Chronic Qualifiers: Hyperlipidemia type: unspecified Qualified Code(s): E78.5 - Hyperlipidemia, unspecified (5) Hypertension Current Visit: Yes Status: Chronic Qualifiers: Hypertension type: primary hypertension Qualified Code(s): I10 - Essential (primary) hypertension (6) Tobacco abuse Current Visit: Yes Status: Chronic (7) Chronic systolic heart failure Current Visit: Yes Status: Acute - Plan Physical Exam General: Alert, NAD Neck: Supple, 2+ carotid pulse no bruit Respiratory: Clear to auscultation bilaterally, Normal air movement Cardiovascular: Regular rate/rhythm, Normal S1 S2 Gastrointestinal: Normal bowel sounds, No tenderness Musculoskeletal: No tenderness Integumentary: No rashes Neurological: No focal motor deficit. Plan: Troponin trended flat. Continue heparin drip for NSTEMI/unstable angina and for possible LV thrombus. Patient noted to have LAD occlusion unamenable to percutaneous intervention. Cardiology Dr. Le recommend transfer to [facility] for evaluation for single bypass surgery. Continue metoprolol for CAD and BP control. Cardiology to follow. Transfer to [facility] initiated. Physician Review: Patient Assessed, Agree with Above Assessment and Plan
[2022-07-14] MEDS: HEPARIN/D5W 25,000 UNIT/500 ML BAG IV PRN (15:08)
[2022-07-14] MEDS: FUROSEMIDE 40 MG/4 ML VIAL IV SCH (17:32)
[2022-07-14] MEDS: ONDANSETRON 4 MG/2 ML VIAL IV PRN (18:16)
[2022-07-14] MEDS: ATORVASTATIN 40 MG TAB PO SCH (20:30)
[2022-07-14] MEDS: NIACIN 100 MG PO SCH (21:00)
[2022-07-14] MEDS ORDERED: methocarbamoL 500 MG TAB PO PRN (22:15)
[2022-07-15 04:33] LABS: Absolute Lymphocytes (CBC) 1.6 K/uL (0.7-4.9); Hematocrit 44.5 % (36.0-45.0); Lymphocytes % 11.2 % (15.3-44.8); MCV 80.4 fL (80-100); MPV 9.5 fL (7.6-11.3); RBC Red Blood Cell Count 5.53 M/uL (3.86-4.86)
[2022-07-15 05:06] LABS: Potassium 5.6 mmol/L (3.5-5.1)
[2022-07-15] MEDS ORDERED: SOD POLYSTYREN SUL 15 GM/60 ML UCUP PO ONE (05:07)
[2022-07-15] MEDS ORDERED: CALCIUM GLUC 10% INJ 4.65 MEQ in NA CHLORIDE 0.9% 100 ML IV ONE (05:07)
[2022-07-15] MEDS ORDERED: D50W 25 GM/50 ML SYRINGE IV PRN (05:07)
[2022-07-15] MEDS ORDERED: GLUCAGON 1 MG/VIAL IM PRN (05:07)
[2022-07-15] MEDS ORDERED: D50W 25 GM/50 ML SYRINGE IV ONE (05:07)
[2022-07-15] MEDS ORDERED: INSULIN -REGULAR HUMAN 50 UNIT/0.5 ML ML IV ONE (05:08)
[2022-07-15] MEDS ORDERED: ALBUTEROL 2.5 MG/3 ML NEB SOL NEB ONE (05:09)
[2022-07-15] MEDS ORDERED: D10W 250 ML IV PRN (05:17)
[2022-07-15] MEDS ORDERED: ALBUTEROL 2.5 MG/3 ML NEB SOL ONE (05:19)
[2022-07-15] MEDS ORDERED: D10W 125 ML IV PRN (05:19)
[2022-07-15] MEDS ORDERED: CALCIUM GLUCONATE 1 GM IVPB 1 GM/50 ML BAG IV ONE (05:40)
[2022-07-15] MEDS: ONDANSETRON 4 MG/2 ML VIAL IV PRN (07:27)
[2022-07-15] MEDS ORDERED: PROMETHAZINE INJ 25 MG/ML AMP IV ONE (08:30)
[2022-07-15] MEDS: METOPROLOL TAR 25 MG TAB PO SCH (08:40)
[2022-07-15] MEDS: FUROSEMIDE 40 MG/4 ML VIAL IV SCH ×2 (08:40→16:48)
[2022-07-15] MEDS: ASPIRIN EC 81 MG TAB PO SCH (08:40)
[2022-07-15] MEDS: HOME MED 1 EA UNK (Magnesium Oxide [Magnesium] 500 MG Capsule) PO SCH (08:41)
[2022-07-15 11:57] VITALS: TEMP 97.7
--- NOTE | 2022-07-15 14:08 | P.PN ---
Subjective Date of Service: 07/15/22 Chief Complaint: NSTEMI Patient noted to have hyperkalemia. She vomited after she was given Kayexalate and since then has been feeling nauseous. She denies any chest pain. Physical Examination - Vital Signs Temperature: 97.7 F Blood Pressure: 113/87 Pulse: 87 Respirations: 16 Pulse Ox (%): 99 Assessment And Plan - Current Problems (Diagnosis) (1) Chest pain Onset Date: 12/27/17 Current Visit: No Status: Acute Qualifiers: Chest pain type: unspecified Qualified Code(s): R07.9 - Chest pain, unspecified (2) NSTEMI (non-ST elevated myocardial infarction) Current Visit: Yes Status: Acute (3) CAD (coronary artery disease) Current Visit: Yes Status: Chronic Qualifiers: Coronary Disease-Associated Artery/Lesion type: [place] artery [place] vs. transplanted heart: [place] heart Associated angina: with unstable angina Qualified Code(s): I25.110 - Atherosclerotic heart disease of [place] coronary artery with unstable angina pectoris (4) Hyperlipidemia Current Visit: Yes Status: Chronic Qualifiers: Hyperlipidemia type: unspecified Qualified Code(s): E78.5 - Hyperlipidemia, unspecified (5) Hypertension Current Visit: Yes Status: Chronic Qualifiers: Hypertension type: primary hypertension Qualified Code(s): I10 - Essential (primary) hypertension (6) Tobacco abuse Current Visit: Yes Status: Chronic (7) Chronic systolic heart failure Current Visit: Yes Status: Acute (8) Hyperkalemia Current Visit: Yes Status: Acute (9) Acute renal failure Current Visit: Yes Status: Acute (10) Seizure disorder Current Visit: Yes Status: Chronic - Plan Physical Exam General: Alert, NAD Neck: Supple, 2+ carotid pulse no bruit Respiratory: Clear to auscultation bilaterally, Normal air movement Cardiovascular: Regular rate/rhythm, Normal S1 S2 Gastrointestinal: Normal bowel sounds, No tenderness Musculoskeletal: No tenderness Integumentary: No rashes Neurological: No focal motor deficit. Plan: Continue heparin drip for NSTEMI/unstable angina and for possible LV thrombus. Patient noted to have LAD occlusion unamenable to percutaneous intervention. Cardiology Dr. Le recommend transfer to [facility] for evaluation for single bypass surgery. Continue metoprolol for CAD and BP control. Cardiology to follow. Transfer to [facility] initiated. Nephrology consulted for SANDHYA and hyperkalemia. Hold Lasix due to SANDHYA. Monitor renal function. Continue home antiseizure medication-phenobarbital.
[2022-07-15] MEDS ORDERED: methocarbamoL 500 MG TAB PO PRN (14:10)
[2022-07-15 14:24] VITALS: O2SAT 97
[2022-07-15] MEDS: HEPARIN/D5W 25,000 UNIT/500 ML BAG IV PRN (14:59)
[2022-07-15 16:07] VITALS: BP 127/77
--- NOTE | 2022-07-15 16:57 | P.DS ---
Admission Date: 07/12/22 Discharge Date: 07/15/22 Disposition: TRANSFR TO OTHER-PSY/CD/REHAB Discharge Condition: FAIR Reason for Admission: NSTEMI - Problems (1) Chest pain Onset Date: 12/27/17 Current Visit: No Status: Acute Qualifiers: Chest pain type: unspecified Qualified Code(s): R07.9 - Chest pain, unspecified (2) NSTEMI (non-ST elevated myocardial infarction) Current Visit: Yes Status: Acute (3) CAD (coronary artery disease) Current Visit: Yes Status: Chronic Qualifiers: Coronary Disease-Associated Artery/Lesion type: [place] artery [place] vs. transplanted heart: [place] heart Associated angina: with unstable angina Qualified Code(s): I25.110 - Atherosclerotic heart disease of [place] coronary artery with unstable angina pectoris (4) Hyperlipidemia Current Visit: Yes Status: Chronic Qualifiers: Hyperlipidemia type: unspecified Qualified Code(s): E78.5 - Hyperlipidemia, unspecified (5) Hypertension Current Visit: Yes Status: Chronic Qualifiers: Hypertension type: primary hypertension Qualified Code(s): I10 - Essential (primary) hypertension (6) Tobacco abuse Current Visit: Yes Status: Chronic (7) Chronic systolic heart failure Current Visit: Yes Status: Acute (8) Hyperkalemia Current Visit: Yes Status: Acute (9) Acute renal failure Current Visit: Yes Status: Acute (10) Seizure disorder Current Visit: Yes Status: Chronic Brief History of Present Illness: Patient is a 42-year-old female with past medical history of seizures, hyperlipidemia, hypertension, and coronary artery disease who presented to the emergency department with complaints of chest pain and shortness of breath that woke her up. 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 EKG showed sinus tachycardia with lateral ST depression. Her troponin was elevated at 65. Dr. Le was contacted and he recommended heparin drip. Other labs significant for BUN 28, creatinine 1.17, D-dimer 2616. Chest CTA showed "no evidence of pulmonary thromboembolism, it showed subtle groundglass opacities in the upper lobes which are nonspecific and may be related to alveolitis. Patient was admitted for further management. Hospital Course: Patient admitted to the medical floor and treated with heparin drip. He was seen and evaluated by cardiology Dr. Le performed cardiac catheterization. Patient noted to have LAD occlusion unamenable to percutaneous intervention. Cardiology Dr. Le recommend transfer to [facility] for evaluation for single bypass surgery. Echocardiogram showed EF 20-25% and possible LV thrombus. Heparin drip was continued after cardiac catheterization. Continue metoprolol for CAD and BP control. Patient had hyperkalemia which was managed with Kayexalate and Lasix. Her renal function trended up slightly on the latest therapy. Transfer to [facility] initiated. Patient has been accepted for transfer. Hyperkalemia has resolved. Vital signs stable for transfer. Vital Signs/Physical Exam: Temp Pulse Resp BP Pulse Ox 97.7 F 89 14 127/77 100 07/15/22 16:00 07/15/22 16:00 07/15/22 16:00 07/15/22 16:00 07/15/22 16:00 General: Alert, In no apparent distress, Oriented x3 HEENT: Mucous membr. moist/pink Neck: JVD not distended Respiratory: Clear to auscultation bilaterally, Normal air movement Cardiovascular: Regular rate/rhythm, Normal S1 S2 Gastrointestinal: Normal bowel sounds, Soft and benign, Non-distended, No tenderness Musculoskeletal: No swelling Integumentary: No rashes Neurological: Normal strength at 5/5 x4 extr Laboratory Data at Discharge: WBC 14.50 K/uL (4.3-10.9) H 07/15/22 04:22 Hgb 14.0 g/dL (12.0-15.0) 07/15/22 04:22 Hct 44.5 % (36.0-45.0) 07/15/22 04:22 Plt Count 217 K/uL (152-406) 07/15/22 04:22 APTT 76.7 SECONDS (24.3-36.9) H 07/15/22 00:29 Sodium 130 mmol/L (136-145) L D 07/15/22 04:22 Potassium 4.3 mmol/L (3.5-5.1) D 07/15/22 14:17 BUN 38 mg/dL (7-18) H 07/15/22 04:22 Creatinine 1.39 mg/dL (0.55-1.02) H 07/15/22 04:22 Glucose 100 mg/dL (74-106) 07/15/22 04:22 Phosphorus 4.5 mg/dL (2.5-4.9) 07/13/22 03:22 Magnesium 1.9 mg/dL (1.6-2.4) 07/13/22 03:22 Triglycerides 55 mg/dL (<150) 07/13/22 03:22 Cholesterol 153 mg/dL (<200) 07/13/22 03:22 HDL Cholesterol 27 mg/dL (40-60) L 07/13/22 03:22 Cholesterol/HDL Ratio 5.67 07/13/22 03:22 Home Medications: Nitroglycerin 0.4 mg SL SEECOM PRN #30 tab.subl 12/27/17 Magnesium Oxide [Magnesium] 500 mg PO DAILY 07/13/22 Niacin 600 mg PO BEDTIME 07/13/22 Zinc Gluconate [Zinc] 50 mg PO DAILY 07/13/22 Acyclovir Sodium 500 mg PO DAILY 07/14/22 PHENobarbitaL [Phenobarbital*] 64.8 mg PO BEDTIME 07/14/22 methocarbamoL [Robaxin*] 500 mg PO BIDP PRN 07/14/22 Atorvastatin Calcium [Lipitor] 40 mg PO BEDTIME tab 07/15/22 Metoprolol Tartrate [Lopressor*] 25 mg PO BID tab 07/15/22 Followup: NONE,NONE [Primary Care Provider] - Time spent managing pt's care (in minutes): 34
--- NOTE | 2022-07-15 17:40 | P.CNS ---
Date of Consult: 07/15/22 Reason for Consult: SANDHYA, hyperkalemia, hyponatremia Chief Complaint: NSTEMI History of Present Illness: Patient is a 42-year-old female with past medical history of seizures, hyperlipidemia, hypertension, and coronary artery disease who presented to the emergency department with complaints of chest pain and shortness of breath that woke her this morning. Pt taking KCL at daily bases for lower extremity cramping in ER BUN 28, creatinine 1.17, D-dimer 2616. Chest CTA showed "no evidence of pulmonary thromboembolism. pt started on heparin drip , LHC today showed LAD occlusion not amenable for treatment, pt received hyperkalemia treatment ROS General : denies fever, chills, WT change weakness, insomnia HEENT: Denies dry, vision changes and headache Resp: denies SOB, cough or wheezes Cardiovascular: chest pain, denied palpitation , or edema GI: denies abdominal pain, diarrhea or constipation : denies dysuria, urgency, foamy urine or blood tinged urine Musculoskeletal: leg cramps Endo: denies polyuria and and polydipsia Extre: denies pain numbness and swelling Physical exam General: AAOx3, NAD, thin HEENT PERRLA, moist mucose membrane neck: supple, no elevated JVD CHEST; CTAB, no wheezes or rales HEART : RRR. Normal S1,2 no murmur or rub Abd: soft, Nt Ext: no edema Skin : No rash A/p #SANDHYA possibly due to ATN +/- contrast associated nephropathy avoid NSAID and contrast #hyperkalemia resolved pt advised to stop KCL #milod hyponatremai cont IVF advised to reduce po fluid #NSTEMI S/p LHC; with LAD oclusion plan to transfer for higher level of care Total time spent 45 minutes including documentation, reviewing labs , placing orders and discussing with medical team Allergies morphine Allergy (Verified 07/13/22 00:57) Anaphylaxis Penicillins Allergy (Verified 07/13/22 00:57) Hives/Rash Home Medications: Nitroglycerin 0.4 mg SL SEECOM PRN #30 tab.subl 12/27/17 Magnesium Oxide [Magnesium] 500 mg PO DAILY 07/13/22 Niacin 600 mg PO BEDTIME 07/13/22 Zinc Gluconate [Zinc] 50 mg PO DAILY 07/13/22 Acyclovir Sodium 500 mg PO DAILY 07/14/22 PHENobarbitaL [Phenobarbital*] 64.8 mg PO BEDTIME 07/14/22 methocarbamoL [Robaxin*] 500 mg PO BIDP PRN 07/14/22 Atorvastatin Calcium [Lipitor] 40 mg PO BEDTIME tab 07/15/22 Metoprolol Tartrate [Lopressor*] 25 mg PO BID tab 07/15/22 - Past Medical/Surgical History Diabetic: No -: Hyperlipidemia -: Chronic neck pain -: Tobacco abuse -: Seizure disorder -: CAD -: Hypertension -: Hysterectomy -: Right foot surgery Psychosocial/ Personal History: Patient is . She has 2 children. - Family History Father Medical History: Heart disease, Hypertension Mother Medical History: Heart disease Notes: Leaky arotic valve - Social History Smoking Status: Unknown if ever smoked Alcohol use: No CD- Drugs: No Caffeine use: Yes Place of Residence: Home Physical Examination Temp Pulse Resp BP Pulse Ox 97.7 F 89 14 127/77 100 07/15/22 16:00 07/15/22 16:00 07/15/22 16:00 07/15/22 16:00 07/15/22 16:00
[2022-07-15] MEDS ORDERED: PHENOBARBITAL 32.4 MG TABLET PO SCH (21:00)
[2022-07-16] MEDS ORDERED: ZINC SULFATE 220 MG CAP PO SCH (09:00)
[2022-07-16] MEDS ORDERED: ACYCLOVIR SODIUM PO SCH (09:00)
--- NOTE | 2022-07-18 17:36 | EKG ---
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
== END 2022-07-15 18:34 | DRG 281 ==
LOC: ER 16:10 → ERHOLD 18:55 → 2ND 21:57
PROVIDERS: ADMIT Internal Medicine; ATTEND Internal Medicine
PROC: 4A023N7 Measurement of Cardiac Sampling and Pressure, Left Heart, Percutaneous Approach (ICD-10-PCS; principal; 2022-07-13)
PROC: B2111ZZ Fluoroscopy of Multiple Coronary Arteries using Low Osmolar Contrast (ICD-10-PCS; 2022-07-13)
DX: I21.4 Non-ST elevation (NSTEMI) myocardial infarction (principal); E87.1 Hypo-osmolality and hyponatremia; I50.22 Chronic systolic (congestive) heart failure; N17.9 Acute kidney failure, unspecified; I11.0 Hypertensive heart disease with heart failure; E87.5 Hyperkalemia; E78.5 Hyperlipidemia, unspecified; I25.110 Atherosclerotic heart disease of native coronary artery with unstable angina pectoris; G40.909 Epilepsy, unspecified, not intractable, without status epilepticus; F17.210 Nicotine dependence, cigarettes, uncomplicated; I25.2 Old myocardial infarction; Z88.5 Allergy status to narcotic agent; Z88.0 Allergy status to penicillin; Z79.899 Other long term (current) drug therapy; Z20.822 Contact with and (suspected) exposure to COVID-19
CPT/HCPCS: 0240U; 36415; 71045; 71275; 74018; 76937; 80048; 80061; 83735; 84100; 84132; 84443; 84484; 85025; 85379; 85730; 93005; 93306; 93458; 93571; 94640; 96365; 96366; 99285; C1760; C1769; C1893; G0269; J0461; J0610; J1200; J1644; J1815; J1940; J2250; J2405; J2550; J2785; J2930; J3010; J7030; J7613; Q9966; Q9967